=== PATIENT | female | born 1990 | race Caucasian/White ===

== ENCOUNTER 2016-09-27 01:35 | Emergency (ER) | payer MEDICAID ==
[2016-09-27] MEDS ORDERED: TETRACAINE HCL 0.5% OPH SOLN 2 ML ONE (02:30)
[2016-09-27 02:36] LABS: ABSOLUTE LYMPHOCYTES (AUTO) 1.2 10^3/uL (0.5-4.7); ABSOLUTE MONOCYTES (AUTO) 0.8 10^3/uL (0.1-1.4); ABSOLUTE NEUT (AUTO) 11.4 10^3/uL (1.7-8.2); BASOPHILS % (AUTO) 0.2 % (0-2); EOSINOPHILS % (AUTO) 0.1 % (0-6); HEMATOCRIT 29.7 % (36.0-47.0); HEMOGLOBIN 9.6 g/dL (12.0-15.5); HGB HCT DIFFERENCE -0.9; LYMPHOCYTES % (AUTO) 9.1 % (13-45); MEAN CORPUSCULAR HEMOGLOBIN 25.7 pg (27.0-33.4); MEAN CORPUSCULAR HGB CONC 32.5 g/dL (32.0-36.0); MEAN CORPUSCULAR VOLUME 79 fl (80-97); MONOCYTES % (AUTO) 6.2 % (3-13); RED BLOOD COUNT 3.75 10^6/uL (3.72-5.28); RED CELL DISTRIBUTION WIDTH 15.9 % (11.5-14.0); SEGMENTED NEUTROPHILS % (AUTO) 84.4 % (42-78); WHITE BLOOD COUNT 13.5 10^3/uL (4.0-10.5)
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
[2016-09-27 02:50] LABS: ALANINE AMINOTRANSFERASE 26 U/L (9-52); ALBUMIN 3.3 g/dL (3.5-5.0); ALKALINE PHOSPHATASE 182 U/L (38-126); ANION GAP 10 (5-19); ASPARTATE AMINO TRANSFERASE 30 U/L (14-36); BILIRUBIN,TOTAL 0.5 mg/dL (0.2-1.3); BLOOD UREA NITROGEN 8 mg/dL (7-20); CALCIUM 9.1 mg/dL (8.4-10.2); CARBON DIOXIDE 21 mmol/L (22-30); CHLORIDE 106 mmol/L (98-107); CREATININE RESULT 0.57 mg/dL (0.52-1.25); GLUCOSE 79 mg/dL (75-110); POTASSIUM 3.9 mmol/L (3.6-5.0); SODIUM 137.3 mmol/L (137-145); TOTAL PROTEIN 6.7 g/dL (6.3-8.2)
[2016-09-27 02:54] LABS: ALCOHOL < 10 mg/dL (NONE DETECTED)
[2016-09-27 03:09] LABS: APPEARANCE,URINE SLIGHTLY-CLOUDY; BILIRUBIN,URINE NEGATIVE (NEGATIVE); GLUCOSE, URINE NEGATIVE (NEGATIVE); KETONES,URINE TRACE mg/dL (NEGATIVE); LEUKOCYTE ESTERASE,URINE SMALL (NEGATIVE); NITRITE,URINE NEGATIVE (NEGATIVE); PROTEIN,URINE NEGATIVE (NEGATIVE); URINE SPECIFIC GRAVITY 1.006; UROBILINOGEN,URINE NEGATIVE mg/dL (<2.0)
[2016-09-27 03:29] LABS: URINE BARBITURATES SCREEN NEGATIVE; URINE METHADONE SCREEN NEGATIVE; URINE OPIATES LOW NEGATIVE; URINE PHENCYCLIDINE SCREEN NEGATIVE
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
[2016-09-27 13:15] VITALS: BP 115/60
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
--- NOTE | 2016-09-27 23:56 | EKG REPORT ---
SEVERITY:- ABNORMAL ECG - SINUS RHYTHM INFERIOR Q WAVES, PROBABLY NORMAL VARIATION NONSPECIFIC T ABNORMALITIES, ANTERIOR LEADS : Confirmed by: Hamida Lucero 27-Sep-2016 23:55:19
== END 2016-09-27 13:15 | disposition home or self-care (01) ==
LOC: ER 01:35
DX: O26.893 Other specified pregnancy related conditions, third trimester (principal); R45.6 Violent behavior; O99.513 Diseases of the respiratory system complicating pregnancy, third trimester; J44.9 Chronic obstructive pulmonary disease, unspecified; J45.909 Unspecified asthma, uncomplicated; Z3A.38 38 weeks gestation of pregnancy; Z86.14 Personal history of Methicillin resistant Staphylococcus aureus infection
CPT/HCPCS: 93005; 99285; 36415; 80307 ×4; 84703; 85025; 80053; 81001; 93010; J3490

== ENCOUNTER 2016-10-14 17:17 | Outpatient (CLI) | payer MEDICAID ==
--- NOTE | 2016-10-14 18:01 | L&D Flow Sheet ---
LD Flowsheet Datetime Report Generated by CPN: 10/14/2016 18:00 Datetime: 10/14/2016 17:38 Vital Signs NBP Sys/Perlita/Mean (mmHg): 105 (QS system process) : 53 (QS system process) : 74 (QS system process) Pulse: 90 (QS system process)
--- NOTE | 2016-10-14 18:15 | Non Stress Test Report ---
Non Stress Test Datetime Report Generated by CPN: 10/14/2016 18:14 DEMOGRAPHIC EGA NST: 40.1 INDICATION Indication for Study: Ordered by Provider MONITORING Monitor Explained: Monitor Explained; Test Explained; Patient Verbalized Understanding Time on Monitor: 10/14/2016 17:35 Time off Monitor: 10/14/2016 18:02 NST Duration: 27 NST INTERVENTIONS NST Interventions: PO Hydration; Reposition Patient BABY A: [id number] BABY A Movement : Present Contraction Frequency : denies FHR Baseline : 135 Accelerations : 15X15 Decelerations : None Variability : Moderate 6-25bpm NST Review: Meets Criteria for Reactive NST NST Review and Verified By : Amita Palma RN NSNito Results: Reactive NST REPORT Report Trigger: Send Report
== END 2016-10-14 18:09 | disposition home or self-care (01) ==
LOC: LC 17:17
PROVIDERS: ATTEND Obstetrics & Gynecology
PROC: 4A1HXCZ Monitoring of Products of Conception, Cardiac Rate, External Approach (ICD-10-PCS; principal; 2016-10-14)
DX: O48.0 Post-term pregnancy (principal); Z3A.40 40 weeks gestation of pregnancy
CPT/HCPCS: 59025

== ENCOUNTER 2016-10-19 12:20 | Inpatient (IN) | payer MEDICAID ==
[2016-10-19] MEDS ORDERED: PENICILLIN G-K 5 MILLION UNIT VIAL ONE (12:26)
[2016-10-19] MEDS ORDERED: OXYTOCIN/NORMAL SALINE 20 UNIT/1,000 ML RTUINJ ONE (12:26)
[2016-10-19 13:31] LABS: ABSOLUTE LYMPHOCYTES (AUTO) 1.3 10^3/uL (0.5-4.7); ABSOLUTE MONOCYTES (AUTO) 0.7 10^3/uL (0.1-1.4); ABSOLUTE NEUT (AUTO) 16.2 10^3/uL (1.7-8.2); BASOPHILS % (AUTO) 0.2 % (0-2); EOSINOPHILS % (AUTO) 0.1 % (0-6); HEMATOCRIT 31.8 % (36.0-47.0); HEMOGLOBIN 10.1 g/dL (12.0-15.5); HGB HCT DIFFERENCE -1.5; LYMPHOCYTES % (AUTO) 7.3 % (13-45); MEAN CORPUSCULAR HEMOGLOBIN 24.6 pg (27.0-33.4); MEAN CORPUSCULAR HGB CONC 31.8 g/dL (32.0-36.0); MEAN CORPUSCULAR VOLUME 77 fl (80-97); RED BLOOD COUNT 4.12 10^6/uL (3.72-5.28); RED CELL DISTRIBUTION WIDTH 16.8 % (11.5-14.0); SEGMENTED NEUTROPHILS % (AUTO) 88.4 % (42-78); WHITE BLOOD COUNT 18.3 10^3/uL (4.0-10.5)
--- NOTE | 2016-10-19 14:00 | L&D Flow Sheet ---
LD Flowsheet Datetime Report Generated by CPN: 10/19/2016 14:00 Datetime: 10/19/2016 13:51 NBP Sys/Perlita/Mean (mmHg): 117 (QS system process) : 72 (QS system process) : 90 (QS system process) Pulse: 63 (QS system process) Datetime: 10/19/2016 13:36 Stage of : Recovery (Yadi Marissa Veras, RN) NBP Sys/Perlita/Mean (mmHg): 119 (QS system process) : 75 (QS system process) : 93 (QS system process) Pulse: 50 (QS system process) Respirations: 18 (Yadi Veras, RN) Pain Scale: 2 (Yadi Veras, RN) Pain Presence: Intermittent (Yadi Veras, RN) Pain Type: Cramping (Yadi Veras, RN) Pain Location: Abdomen (Yadi Veras, RN) Pain Relief Measures: Comfort Measures (Yadi Veras, RN) Datetime: 10/19/2016 13:21 Stage of : Recovery (Yadi Veras, RN) NBP Sys/Perlita/Mean (mmHg): 120 (QS system process) : 73 (QS system process) : 92 (QS system process) Pulse: 57 (QS system process) Respirations: 18 (Yadi Veras, RN) Pain Scale: 2 (Yadi Veras, RN) Pain Presence: Intermittent (Yadi Veras, RN) Pain Type: Cramping (Yadi Veras, RN) Pain Location: Abdomen (Yadi Veras, RN) Pain Relief Measures: Comfort Measures (Yadi Veras, RN) Datetime: 10/19/2016 12:55 Stage of : Recovery (Yadi Veras, REBEKAH) NBP Sys/Perlita/Mean (mmHg): 123 (QS system process) : 74 (QS system process) : 92 (QS system process) Pulse: 75 (QS system process) Respirations: 18 (Yadi Veras RN) Pain Scale: 2 (Yadi Veras, RN) Pain Presence: Intermittent (Yadi Veras, RN) Pain Type: Cramping (Yadi Veras, RN) Pain Location: Abdomen (Yadi Veras, RN) Pain Relief Measures: Comfort Measures (Yadi Veras RN) Datetime: 10/19/2016 12:44 Stage of : Recovery (Yadi Veras, REBEKAH) NBP Sys/Perlita/Mean (mmHg): 149 (QS system process) : 69 (QS system process) : 94 (QS system process) Pulse: 71 (QS system process) Respirations: 18 (Yadi Veras RN) Pain Scale: 2 (Yadi Veras, REBEKAH) Pain Presence: Intermittent (Yadi Veras RN) Pain Type: Cramping (Yadi Veras, RN) Pain Location: Abdomen (Yadi Veras, RN) Pain Relief Measures: Comfort Measures (Yadi Veras, REBEKAH) Datetime: 10/19/2016 12:37 Stage of : Recovery (Yadi Veras RN) NBP Sys/Perlita/Mean (mmHg): 137 (QS system process) : 63 (QS system process) : 91 (QS system process) Pulse: 71 (QS system process) Respirations: 20 (Yadi Veras RN) Temperature (F): 97.6 (Yadi Veras RN) Temperature (C): 36.4 (QS system process) Temperature Route: Oral (Yadi Veras RN) Pain Scale: 2 (Yadi Veras RN) Pain Presence: Intermittent (Yadi Veras RN) Pain Type: Cramping (Yadi Veras RN) Pain Location: Abdomen; Perineum (Yadi Veras RN) Pain Goal: 1 (Yadi Veras RN) Pain Relief Measures: Comfort Measures (Yadi Veras RN) Datetime: 10/19/2016 12:32 Communication Comments: viable babygirl (Yadi Marissa Roulund, RN) Datetime: 10/19/2016 12:31 Communication Comments: o2 applied 10 L nonrebreather (Yadi Veras, REBEKAH) Datetime: 10/19/2016 12:26 Dilatation (cm): 10.0 (Yadi Veras RN) Effacement (%): 100 (Yadi Veras RN) Station: 1 (Yadi Veras RN) Exam by: Dr. Wick (Yadi Veras RN) Membrane Status: Ruptured (Yadi Veras RN) Membranes Rupture Method: Artificial (Yadi Veras RN) Amniotic Fluid Color: Moderate Meconium (Yadi Veras RN) Amniotic Fluid Amount: Moderate (Yadi Veras RN) Pushing: Coached on Pushing; Urge to Push (Yadi Veras RN) Pushing Position: Pushing with Contractions; Pushing Lithotomy (Yadi Veras RN) Pushing Progress: Descent with Pushing; Presenting Part Visible (Yadi Veras, RN) Datetime: 10/19/2016 12:24 Communication: Provider at Bedside (Yadi Veras, REBEKAH) Communication Comments: Dr. Wick at bedside (Yadi Veras, RN) Datetime: 10/19/2016 12:22 NBP Sys/Perlita/Mean (mmHg): 151 (QS system process) : 67 (QS system process) : 96 (QS system process) Pulse: 97 (QS system process) Communication Comments: Brendan Cunha CNM notified of patient's cervical exam, en route to unit (Yadi Veras, REBEKAH) LaborFlag: Labor (QS system process) Datetime: 10/19/2016 12:20 Stage of : Labor (Yadi Veras RN) Dilatation (cm): 9.0 (Yadi Veras RN) Effacement (%): 100 (Yadi Veras RN) Exam by: Jonas Johnson RN (Yadi Veras, RN)
[2016-10-19] MEDS ORDERED: NA PHOS,M-B/NA PHOS,DI-BA (ADULT) 133 ML ENEMA PR PRN (15:06)
[2016-10-19] MEDS ORDERED: DIPHENHYDRAMINE HCL 25 MG CAPSULE PO PRN (15:06)
[2016-10-19] MEDS ORDERED: BENZOCAINE/MENTHOL AEROSOL SPRAY 56 ML TOP PRN (15:06)
[2016-10-19] MEDS ORDERED: ACETAMINOPHEN 650 MG SUPP.RECT PR PRN (15:06)
[2016-10-19] MEDS ORDERED: MAGNESIUM HYDROXIDE SUSP 30 ML UDCUP PO PRN (15:06)
[2016-10-19] MEDS ORDERED: ZOLPIDEM TARTRATE 5 MG TABLET PO PRN (15:06)
[2016-10-19] MEDS ORDERED: MEASLES,MUMPS&RUBELLA VACC/PF 0.5 ML VIAL SUBCUT PRN (15:06)
[2016-10-19] MEDS ORDERED: GLYCERIN/WITCH HAZEL LEAF 1 EACH MED..PAD TP PRN (15:06)
[2016-10-19] MEDS ORDERED: OXYTOCIN/NORMAL SALINE 1,000 ML IV PRN (15:06)
[2016-10-19] MEDS ORDERED: ACETAMINOPHEN WITH CODEINE #3 TABLET PO PRN ×2 (15:06)
[2016-10-19] MEDS ORDERED: PROMETHAZINE HCL 25 MG TABLET PO PRN (15:06)
[2016-10-19] MEDS ORDERED: PROMETHAZINE HCL 25 MG SUPP.RECT PR PRN (15:06)
[2016-10-19] MEDS ORDERED: DIPH/PERTUSS(ACELL)/TETANUS VAC/PF 0.5 ML SYR (>=10YO) IM PRN (15:06)
[2016-10-19] MEDS ORDERED: PROMETHAZINE HCL INJ 25 MG/1 ML VIAL IV PRN (15:06)
[2016-10-19] MEDS ORDERED: PSEUDOEPHEDRINE HCL 30 MG TABLET PO PRN (15:06)
[2016-10-19] MEDS ORDERED: DIBUCAINE 1% OINTMENT 28 GM TP PRN (15:06)
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
--- NOTE | 2016-10-19 15:54 | Delivery Summary ---
Del Sum A-C Datetime Report Generated by CPN: 10/19/2016 15:54 ADMISSION DATA Chief Complaint: Uterine Contractions Indication for Induction: Not Applicable Admission Impression: Term, Intrauterine ; Active Labor Admission Impression Comments: Arrived on unit at 9cm with bulging membranes. Admit Provider Comments: G2, now P2002 dated by 21 wk sonogram ? psychosocial issues-Involuntary commitment for bipolar issues Late onset and insufficient care Positive GBS test See records DELIVERY PERSONNEL Delivery Doctor:: Maria C Wick MD Labor and Delivery Nurse:: Yadi Veras RN Labor and Delivery Nurse:: Arely Vallejo RN Pre Fabricator:: Rose Bledsoe RN Student Observers:: Evelin Glover/INLAYER: Sarahy He CST MATERNAL INFORMATION Delivery Anesthesia: None Medications After Delivery: Pitocin Bolus-Please Comment; Pitocin Drip 20 Units/1000ml NSS Meds After Delivery Comment: 20 units Pitocin in 1 L NS bolusing per order Estimated Blood Loss (ml): 250 Maternal Complications: Precipitous Labor (<3hrs) Provider Comments: Pt arrived to L and D 9 cm and rapidly progressed to complete and pushing. Arom-meconium. Pushed to delivery of vtx OA with compound post hand with cord wrarrped around it. Shoulders delivered easily and cord reduced. Female infant with apgars 8 and 9. Cord clamped and cut. Placenta spontaneous and intact. Mom and baby doing well. LABOR SUMMARY EDC: 10/13/2016 00:00 No. Babies in Womb: 1 Attempted: No Labor Anesthesia: None LABOR INFORMATION Reason for Induction: Not Applicable Onset of Labor: 10/19/2016 10:45 Complete Dilatation: 10/19/2016 12:26 Oxytocin: N/A Group B Beta Strep: positive Antibiotics # of Doses: 0 Steroids Given: None Reason Steroids Not Administered: Not Applicable MEMBRANES Membranes Rupture Method: Artificial Rupture of Membranes: 10/19/2016 12:26 Length of Rupture (hr): 0.10 Amniotic Fluid Color: Moderate Meconium Amniotic Fluid Amount: Moderate Amniotic Fluid Odor: Normal STAGES OF LABOR Stage 1 hr: 1 Stage 1 min: 41 Stage 2 hr: 0 Stage 2 min: 6 Stage 3 hr: 0 Stage 3 min: 4 Total Time in Labor hr: 1 Total Time in Labor min: 51 VAGINAL DELIVERY Episiotomy: None Laceration Extension: N/A Laceration Type: None Laceration Repair: No Laceration Repair Note: superficial hemostic abrasion r labia minora-no need for repair Sponge Count Correct: N/A Sharps Count Correct: N/A CSECTION DELIVERY Primary Indication: N/A Secondary Indication: N/A CSection Incidence: N/A Labor: N/A Elective: N/A CSection Incision: N/A BABY A INFORMATION Infant Delivery Date/Time: 10/19/2016 12:32 Method of Delivery: Vaginal Born in Route : No : N/A Forceps: N/A Vacuum Extraction: N/A Shoulder Dystocia : No PRESENTATION/POSITION BABY A Presentation: Cephalic Cephalic Presentation: Vertex Vertex Position: Left Occipital Anterior Breech Presentation: N/A PLACENTA INFORMATION BABY A Placenta Delivery Time : 10/19/2016 12:36 Placenta Method of Delivery: Spontaneous Placenta Status: Delivered SCORES BABY A Heart Rate 1 min: >100 bpm Resp Effort 1 min: Good Cry Reflex Irritability 1 min: Cough or Sneeze or Pulls Away Muscle Tone 1 min: Active Motion Color 1 min: Blue/Pale SCORE 1 MIN: 8 Heart Rate 5 min: >100 bpm Resp Effort 5 min: Good Cry Reflex Irritability 5 min: Cough or Sneeze or Pulls Away Muscle Tone 5 min: Active Motion Color 5 min: Body [place], Extremities Blue SCORE 5 MIN: 9 INFANT INFORMATION BABY A Gestational Age at Delivery: 40.6 Gestational Status: Full Term- 39- 40.6 Weeks Infant Outcome : Liveborn Infant Condition : Stable Sex: Female IDENTIFICATION BABY A Verification Date/Time: 10/19/2016 12:48 ID Band Number: [id number] Mother's Name Verified: Yes RN Verifying : Leslie Rogers WEIGHT/LENGTH BABY A Infant Birthweight (gm): 3180 Weight (lb): 7 Weight (oz): 0 Length (in): 20.50 Length (cm): 52.07 CORD INFORMATION BABY A No. Cord Vessels: 3 Nuchal Cord : Around Neck x1, Loose Nuchal Cord- Other: compound right hand Cord Blood Taken: Yes-For Eval (Mom's Blood Type - or O+) Suction: Mouth; Nose ASSESSMENT BABY A Infant Complications: Meconium Physical Findings at Delivery: Within Normal Limits Respirations: Appears Normal Skin to Skin: Yes Skin to Skin Time (min): 80 Real Estate Instructor/ALS Called : No Infant Care By: Leslie RONQUILLO RN Transferred To: Nursery BABY B INFORMATION : N/A SIGNATURES Signature: with User ID: [email or web address] : I personally evaluated and examined the patient in conjunction with the MLP and agree with the assessment, treatment plan and disposition.
--- NOTE | 2016-10-19 16:00 | L&D Flow Sheet ---
LD Flowsheet Datetime Report Generated by CPN: 10/19/2016 16:00 Datetime: 10/19/2016 14:51 Stage of : Recovery (Yadi Veras RN) NBP Sys/Perlita/Mean (mmHg): 123 (QS system process) : 67 (QS system process) : 89 (QS system process) Pulse: 65 (QS system process) Respirations: 18 (Yadi Veras RN) Pain Scale: 2 (Yadi Veras RN) Pain Presence: Intermittent (Yadi Veras RN) Pain Type: Cramping (Yadi Veras RN) Pain Location: Abdomen (Yadi Veras RN) Pain Relief Measures: Comfort Measures (Yadi Veras RN) Datetime: 10/19/2016 14:37 Frequency (min): DELIVERED (Yadi Veras RN) Monitor Mode: DELIVERED (Yadi Veras RN) Pain Scale: 2 (Yadi Veras RN) Pain Presence: Intermittent (Yadi Veras RN) Pain Type: Cramping (Yadi Veras RN) Pain Location: Abdomen (Yadi Veras RN) Pain Goal: 1 (Yadi Veras RN) Pain Relief Measures: Comfort Measures (Yadi Veras RN) Pain Coping: Breathing Through Contractions; Requesting Pain Medication or Epidural; Writhing (Yadi Veras RN) Vaginal Bleeding: Small (Yadi Veras RN) Level of Consciousness: Fully Conscious (Yadi Veras RN) DTR's/Clonus: DTRs 1+; No Clonus (Yadi Veras RN) Headache: Denies (Yadi Veras RN) Breath Sounds, Left: Clear and Equal (Yadi Veras RN) Breath Sounds, Right: Clear and Equal (Yadi Veras RN) Nausea/Vomiting: Denies (Yadi Veras RN) RUQ Epigastric Pain: Denies (Yadi Veras RN) IV/Blood Work: IV Infusing per Order (Yadi Veras RN) Oxygen Method: Room Air (Yadi Veras RN) Procedures: Consents Signed (Yadi Veras RN) Patient Position/Activity: Semi-Fowlers (Yadi Veras RN) Comfort Measures: Family Support (Yadi Veras RN) Datetime: 10/19/2016 14:36 Stage of : Recovery (Yadi Veras RN) NBP Sys/Perlita/Mean (mmHg): 131 (QS system process) : 71 (QS system process) : 95 (QS system process) Pulse: 72 (QS system process) Respirations: 18 (Yadi Veras RN) Datetime: 10/19/2016 14:21 Stage of : Recovery (Yadi Veras RN) NBP Sys/Perlita/Mean (mmHg): 131 (QS system process) : 64 (QS system process) : 92 (QS system process) Pulse: 72 (QS system process) Respirations: 18 (Yadi Veras RN) Pain Scale: 2 (Yadi Veras RN) Pain Presence: Intermittent (Yadi Veras RN) Pain Type: Cramping (Yadi Veras RN) Pain Location: Abdomen (Yadi Veras RN) Pain Relief Measures: Comfort Measures (Yadi Veras RN) Datetime: 10/19/2016 14:07 Stage of : Recovery (Yadi Veras RN) NBP Sys/Perlita/Mean (mmHg): 126 (QS system process) : 69 (QS system process) : 88 (QS system process) Pulse: 72 (QS system process) Respirations: 18 (Yadi Veras RN) Pain Scale: 2 (Yadi Veras RN) Pain Presence: Intermittent (Yadi Veras RN) Pain Type: Cramping (Yadi Veras RN) Pain Location: Abdomen (Yadi Veras RN) Pain Relief Measures: Comfort Measures (Yadi Veras RN)
[2016-10-19] MEDS ORDERED: INFLUENZA ADLT QUAD (36MOS+) 2016-17 VAC 0.5 ML SYR IM PRN (16:34)
[2016-10-19] MEDS: DOCUSATE SODIUM 100 MG CAPSULE PO SCH (17:52)
[2016-10-19] MEDS: FERROUS SULFATE 325 MG TABLET PO SCH (17:52)
--- NOTE | 2016-10-19 19:00 | L&D Flow Sheet ---
LD Flowsheet Datetime Report Generated by CPN: 10/19/2016 19:00 Datetime: 10/19/2016 14:51 Stage of : Recovery (Yadi Veras RN) NBP Sys/Perlita/Mean (mmHg): 123 (QS system process) : 67 (QS system process) : 89 (QS system process) Pulse: 65 (QS system process) Respirations: 18 (Yadi Veras RN) Pain Scale: 2 (Yadi Veras RN) Pain Presence: Intermittent (Yadi Veras RN) Pain Type: Cramping (Yadi Veras RN) Pain Location: Abdomen (Yadi Veras RN) Pain Relief Measures: Comfort Measures (Yadi Veras RN) Datetime: 10/19/2016 14:37 Frequency (min): DELIVERED (Yadi Veras RN) Monitor Mode: DELIVERED (Yadi Veras RN) Pain Scale: 2 (Yadi Veras RN) Pain Presence: Intermittent (Yadi Veras RN) Pain Type: Cramping (Yadi Vears RN) Pain Location: Abdomen (Yadi Veras RN) Pain Goal: 1 (Yadi Veras RN) Pain Relief Measures: Comfort Measures (Yadi Veras RN) Pain Coping: Breathing Through Contractions; Requesting Pain Medication or Epidural; Writhing (Yadi Veras RN) Vaginal Bleeding: Small (Yadi Veras RN) Level of Consciousness: Fully Conscious (Yadi Veras RN) DTR's/Clonus: DTRs 1+; No Clonus (Yadi Veras RN) Headache: Denies (Yadi Veras RN) Breath Sounds, Left: Clear and Equal (Yadi Veras RN) Breath Sounds, Right: Clear and Equal (Yadi Veras RN) Nausea/Vomiting: Denies (Yadi Veras RN) RUQ Epigastric Pain: Denies (Yadi Veras RN) IV/Blood Work: IV Infusing per Order (Yadi Veras RN) Oxygen Method: Room Air (Yadi Veras RN) Procedures: Consents Signed (Yadi Veras RN) Patient Position/Activity: Semi-Fowlers (Yadi Veras RN) Comfort Measures: Family Support (Yadi Veras RN) Datetime: 10/19/2016 14:36 Stage of : Recovery (Yadi Veras RN) NBP Sys/Perlita/Mean (mmHg): 131 (QS system process) : 71 (QS system process) : 95 (QS system process) Pulse: 72 (QS system process) Respirations: 18 (Yadi Veras RN) Datetime: 10/19/2016 14:21 Stage of : Recovery (Yadi Veras RN) NBP Sys/Perlita/Mean (mmHg): 131 (QS system process) : 64 (QS system process) : 92 (QS system process) Pulse: 72 (QS system process) Respirations: 18 (Yadi Veras RN) Pain Scale: 2 (Yadi Veras RN) Pain Presence: Intermittent (Yadi Veras RN) Pain Type: Cramping (Yadi Veras RN) Pain Location: Abdomen (Yadi Veras RN) Pain Relief Measures: Comfort Measures (Yadi Veras RN) Datetime: 10/19/2016 14:07 Stage of : Recovery (Yadi Veras RN) NBP Sys/Perlita/Mean (mmHg): 126 (QS system process) : 69 (QS system process) : 88 (QS system process) Pulse: 72 (QS system process) Respirations: 18 (Yadi Veras RN) Pain Scale: 2 (Yadi Veras RN) Pain Presence: Intermittent (Yadi Veras RN) Pain Type: Cramping (Yadi Veras RN) Pain Location: Abdomen (Yadi Veras RN) Pain Relief Measures: Comfort Measures (Yadi Veras RN) Datetime: 10/19/2016 13:51 Stage of : Recovery (Yadi Veras RN) NBP Sys/Perlita/Mean (mmHg): 117 (QS system process) : 72 (QS system process) : 90 (QS system process) Pulse: 63 (QS system process) Respirations: 18 (Yadi Veras RN) Pain Scale: 2 (Yadi Veras RN) Pain Presence: Intermittent (Yadi Veras RN) Pain Type: Cramping (Yadi Veras RN) Pain Location: Abdomen (Yadi Veras RN) Pain Relief Measures: Comfort Measures (Yadi Veras RN) Datetime: 10/19/2016 13:36 Stage of : Recovery (Yadi Veras RN) NBP Sys/Perlita/Mean (mmHg): 119 (QS system process) : 75 (QS system process) : 93 (QS system process) Pulse: 50 (QS system process) Respirations: 18 (Yadi Veras RN) Pain Scale: 2 (Yadi Veras RN) Pain Presence: Intermittent (Yadi Veras RN) Pain Type: Cramping (Yadi Veras RN) Pain Location: Abdomen (Yadi Veras RN) Pain Relief Measures: Comfort Measures (Yadi Veras RN) Datetime: 10/19/2016 13:21 Stage of : Recovery (Yadi Veras RN) NBP Sys/Perlita/Mean (mmHg): 120 (QS system process) : 73 (QS system process) : 92 (QS system process) Pulse: 57 (QS system process) Respirations: 18 (Yadi Veras RN) Pain Scale: 2 (Yadi Veras RN) Pain Presence: Intermittent (Yadi Veras RN) Pain Type: Cramping (Yadi Veras, REBEKAH) Pain Location: Abdomen (Yadi Veras, REBEKAH) Pain Relief Measures: Comfort Measures (Yadi Veras, REBEKAH) Datetime: 10/19/2016 12:55 Stage of : Recovery (Yadi Veras RN) NBP Sys/Perlita/Mean (mmHg): 123 (QS system process) : 74 (QS system process) : 92 (QS system process) Pulse: 75 (QS system process) Respirations: 18 (aYdi Veras RN) Pain Scale: 2 (Yadi Veras RN) Pain Presence: Intermittent (Yadi Veras RN) Pain Type: Cramping (Yadi Veras, REBEKAH) Pain Location: Abdomen (Yadi Veras, REBEKAH) Pain Relief Measures: Comfort Measures (Yadi Veras RN) Datetime: 10/19/2016 12:44 Stage of : Recovery (Yadi Veras RN) NBP Sys/Perlita/Mean (mmHg): 149 (QS system process) : 69 (QS system process) : 94 (QS system process) Pulse: 71 (QS system process) Respirations: 18 (Yadi Veras RN) Pain Scale: 2 (Yadi Veras RN) Pain Presence: Intermittent (Yadi Veras RN) Pain Type: Cramping (Yadi Veras RN) Pain Location: Abdomen (Yadi Veras RN) Pain Relief Measures: Comfort Measures (Yadi Veras RN) Datetime: 10/19/2016 12:37 Stage of : Recovery (Yadi Veras RN) NBP Sys/Perlita/Mean (mmHg): 137 (QS system process) : 63 (QS system process) : 91 (QS system process) Pulse: 71 (QS system process) Respirations: 20 (Yadi Veras RN) Temperature (F): 97.6 (Yadi Veras RN) Temperature (C): 36.4 (QS system process) Temperature Route: Oral (Yadi Veras RN) Pain Scale: 2 (Yadi Veras RN) Pain Presence: Intermittent (Yadi Veras RN) Pain Type: Cramping (Yadi Veras RN) Pain Location: Abdomen; Perineum (Yadi Veras RN) Pain Goal: 1 (Yadi Veras RN) Pain Relief Measures: Comfort Measures (Yadi Veras RN) Datetime: 10/19/2016 12:32 Stage of : Labor (Yadi Veras RN) Respirations: 22 (Yadi Veras RN) Monitor Mode: External; Palpation (Yadi Veras RN) Monitor Interventions for UA: [place] Adjusted (Yadi Veras RN) Frequency (min): 1.5-2 (Yadi Veras RN) Quality: Moderate to Strong (Yadi Veras RN) Duration (sec): 60-70 (Yadi Veras, REBEKAH) Resting Tone (Palpate): Relaxed (Yadi Veras RN) Monitor Mode: External US (Yadi Veras RN) Monitor Interventions for FHR: Ultrasound Adjusted (Yadi Veras RN) FHR Baseline Rate : 120 (Yadi Veras RN) FHR Baseline Changes: No Baseline Change (Yadi Veras RN) Variability: Moderate 6-25 bpm (Yadi Veras RN) Accelerations: None (Yadi Veras RN) Decelerations: Early; Variable (Yadi Veras RN) Pain Presence: Intermittent (Yadi Veras RN) Pain Type: Contraction; Pressure (Yadi Veras RN) Pain Location: Abdomen; Perineum (Yadi Veras, RN) Pain Coping: Breathing Through Contractions; Writhing (Yadi Veras, REBEKAH) Comfort Measures: Breathing/Relaxation; Coaching; Family Support (Yadi Veras, REBEKAH) Provider Reviewed Strip: Yes (Yadi Veras RN) Communication: RN at Bedside; RN Reviewed Strip; Provider at Bedside (Yadi Veras RN) Communication Comments: MD WOLFE @ BS (Yadi Veras RN) Communication Comments: viable babygirl (Yadi Veras RN) LaborFlag: Labor (QS system process) Datetime: 10/19/2016 12:31 Communication Comments: o2 applied 10 L nonrebreather (Yadi Veras RN) Datetime: 10/19/2016 12:26 Stage of : Labor (Yadi Veras RN) Dilatation (cm): 10.0 (Yadi Marissa Roulund, RN) Effacement (%): 100 (Yadi Veras RN) Station: 1 (Yadi Veras RN) Exam by: Dr. Wick (Yadi Veras, REBEKAH) Membrane Status: Ruptured (Yadi Veras RN) Membranes Rupture Method: Artificial (Yadi Veras RN) Amniotic Fluid Color: Moderate Meconium (Yadi Veras RN) Amniotic Fluid Amount: Moderate (Yadi Veras RN) IV/Blood Work: IV Started; IV Bolus Started; New IV Bag Hung (Yadi Veras, REBEKAH) Pushing: Coached on Pushing; Urge to Push; Involuntary Pushing (Yadi Veras RN) Pushing Position: Pushing with Contractions; Pushing Lithotomy (Yadi Veras RN) Pushing Progress: Descent with Pushing; Presenting Part Visible (Yadi Veras RN) Datetime: 10/19/2016 12:24 Communication: Provider at Bedside (Yadi Veras RN) Communication Comments: Dr. Wick at bedside (Yadi Veras, REBEKAH) Datetime: 10/19/2016 12:22 NBP Sys/Perlita/Mean (mmHg): 151 (QS system process) : 67 (QS system process) : 96 (QS system process) Pulse: 97 (QS system process) Communication Comments: Brendan Cunha CNM notified of patient's cervical exam, en route to unit (Yadi Veras RN) LaborFlag: Labor (QS system process) Datetime: 10/19/2016 12:20 Stage of : Labor (Yadi Veras RN) Monitor Mode: External; Palpation (Yadi Veras RN) Monitor Interventions for UA: [place] Adjusted (Yadi Veras RN) Quality: Moderate to Strong (Yadi Veras RN) Resting Tone (Palpate): Relaxed (Yadi Veras RN) Monitor Mode: External US (Yadi Veras RN) Monitor Interventions for FHR: Ultrasound Adjusted (Yadi Veras RN) FHR Baseline Rate : 125 (Yadi Veras RN) Pain Scale: 5 (Yadi Veras RN) Pain Presence: Intermittent (Yadi Veras RN) Pain Type: Contraction; Pressure (Yadi Veras RN) Pain Location: Abdomen; Perineum (Yadi Veras RN) Pain Goal: 1 (Yadi Veras RN) Pain Relief Measures: Comfort Measures (Yadi Veras RN) Pain Coping: Breathing Through Contractions; Requesting Pain Medication or Epidural; Writhing (Yadi Veras, RN) Dilatation (cm): 9.0 (Yadi Veras, RN) Effacement (%): 100 (Yadi Veras, RN) Exam by: Jonas Johnson RN (Yadi Veras, RN) Membrane Status: Bulging (Yadi Veras, RN) Patient Position/Activity: Left Lateral (Yadi Veras, REBEKAH) Comfort Measures: Breathing/Relaxation; Coaching; Family Support (Yadi Veras, REBEKAH) Instructional Method: Verbal; Patient Instructed; Family/Support Person Instructed; Verbalized Understanding (Yadi Veras, REBEKAH) Plan of Care: Vaginal Delivery; Labor (Yadi Veras, REBEKAH) Pain Management: Pain Scale/Goals; Comfort Measures (Yadi Veras, REBEKAH) Communication: RN at Bedside; RN Reviewed Strip (Yadi Veras RN) LaborFlag: Labor (QS system process)
[2016-10-19] MEDS: FAMOTIDINE 20 MG TABLET PO SCH (22:20)
[2016-10-19] MEDS: IBUPROFEN 800 MG TABLET PO SCH (22:21)
[2016-10-20] MEDS: IBUPROFEN 800 MG TABLET PO SCH ×3 (05:31→21:57)
--- NOTE | 2016-10-20 06:00 | L&D General Admission ---
General Admit Datetime Report Generated by CPN: 10/20/2016 06:00 INFORMATION Patient Age: 26 (09/28/2016 16:06:QS system process) EDC: 10/13/2016 00:00 (10/14/2016 17:34:LUPILLO Glover) : 2 (10/14/2016 17:34:Rosibel Tracey RN) Para: 1 (10/14/2016 17:34:LUPILLO Glover) Term: 1 (10/14/2016 17:34:Rosibel Tracey RN) : 0 (10/14/2016 17:34:Rosibel Tracey RN) Spontaneous Abortions: 0 (10/14/2016 17:34:Rosibel Tracey RN) Induced Abortions: 0 (10/14/2016 17:34:Rosibel Tracey RN) Livin (10/14/2016 17:34:Rosibel Tracey RN) Cesareans: 0 (10/14/2016 17:34:Rosibel Tracey RN) VBACs: 0 (10/14/2016 17:34:Rosibel Tracey RN) Ectopic: 0 (10/14/2016 17:34:Rosibel Tracey RN) Multiple Births: 0 (10/14/2016 17:34:Rosibel Tracey RN) Baby, Number in Womb: 1 (10/14/2016 17:34:LUPILLO Glover) CARE Primary Motor Coach Tour Operator: [facility] (10/14/2016 17:34:Rosibel Tracey RN) Adequate Care: No (10/14/2016 17:34:Yadi Veras RN) Prepregnancy Weight (lb): 135 (10/14/2016 17:34:Yadi Veras RN) Prepregnancy Weight (kg): 61.4 (10/14/2016 17:34:QS system process) Height (in): 61 (10/19/2016 16:33:QS system process) ALLERGIES Medication Allergy: No (10/14/2016 17:34:Rosibel Tracey RN) Medication Allergies: No Known Allergies (10/14/2016) (10/14/2016 18:24:QS system process) Latex Allergy: No Latex Allergies (10/14/2016 17:34:Rosibel Tracey RN) Food Allergies: NONENONE (10/14/2016 17:34:Yadi Veras RN) COMMUNICATION Primary Language: Mosotho (10/14/2016 17:34:Rosibel Tracey RN) Medical Tx Preferred Language: Mosotho (10/14/2016 17:34:Rosibel Tracey RN) Communication Barrier(s): None (10/14/2016 17:34:Yadi Veras RN) DEMOGRAPHICS Address: [address] [place] [id number] (10/14/2016 17:17:QS system process) Zipcode: [address] (09/28/2016 16:06:QS system process) Home (10/14/2016 17:17:QS system process) N: [id number] (09/28/2016 16:06:QS system process) Next of Kin Name: KERRY COLLADO (09/28/2016 16:06:QS system process) Next of Kin (09/28/2016 16:06:QS system process) Next of Kin Relationship: OR (09/28/2016 16:06:QS system process) Date of : 1990 (09/28/2016 16:06:QS system process) Marital Status: (09/28/2016 16:06:QS system process) Sex: Female (09/28/2016 16:06:QS system process) Occupation: Homemaker (10/14/2016 17:34:Yadi Veras RN) Race: (09/28/2016 16:06:QS system process) Ethnicity: Non- or (09/28/2016 16:06:QS system process) Episcopal: Restorationist (09/28/2016 16:06:QS system process) Education: 12 (10/14/2016 17:34:Yadi Veras RN) FOB Involved: Yes (10/14/2016 17:34:Yadi Veras RN) Father of Baby Name: SONIDO PENA (10/14/2016 17:34:Yadi Veras RN) DRUG AND ALCOHOL USE Alcohol: No (10/14/2016 17:34:Rosibel Tracey RN) Cigarettes: Never Smoker. [id number] (10/14/2016 17:34:Yadi Veras RN) Marijuana: No (10/14/2016 17:34:Rosibel Tracey RN) Cocaine: No (10/14/2016 17:34:Rosibel Tracey RN) Other Illicit Drugs: No (10/14/2016 17:34:Rosibel Tracey RN) VACCINE HISTORY Influenza Vaccine: No (10/14/2016 17:34:Yadi Veras RN) Pneumococcal Vaccine: No (10/14/2016 17:34:Yadi Veras RN) Tdap Vaccine: Uncertain (10/14/2016 17:34:Yadi Veras RN) Hepatitis B Vaccine: Yes (10/14/2016 17:34:Yadi Veras RN) High School Drafting Teacher: RODNEY PEÑA (10/14/2016 17:34:Yadi Veras RN) Feeding Preference: Formula (10/14/2016 17:34:Yadi Veras RN) Benefit of Breast Feed Discussed: Yes (10/14/2016 17:34:Yadi Veras RN) Circumcision: N/A (10/14/2016 17:34:Rosibel Tracey RN) Classes Attended: No (10/14/2016 17:34:Rosibel Tracey RN) Tubal Ligation: No (10/14/2016 17:34:Rosibel Tracey RN) Tubal Authorization Signed: N/A (10/14/2016 17:34:Rosibel Tracey RN) Consent: N/A (10/14/2016 17:34:Rosibel Tracey RN) Consent Signed: N/A (10/14/2016 17:34:Rosibel Tracey RN) Plans for Labor and Delivery: None (10/14/2016 17:34:Yadi Veras RN) Support Person: RUI (10/14/2016 17:34:Yadi Veras RN) Support Person Relationship: Significant Other (10/14/2016 17:34:Yadi Veras RN) Cultural/Spritual Practice: No (10/14/2016 17:34:Rosibel Tracey RN) Spir/Cult Dietary Needs: No (10/14/2016 17:34:Rosibel Tracey RN) LIVING SITUATION/DISCHARGE PLAN Living Arrangements: House (10/14/2016 17:34:Yadi Veras RN) Adequate Access to:: Electric; Heat; Refrigeration; Plumbing/Running water; Phone; Transportation (10/14/2016 17:34:Yadi Veras RN) WIC Program: Yes (10/14/2016 17:34:Yadi Veras RN) Discharge Donor Specialist Person: SONIDO (10/14/2016 17:34:Yadi Veras RN) Person to Help after Discharge: EITAN (10/14/2016 17:34:Yadi Veras RN) Currently Using Commun Resources: No (10/14/2016 17:34:Yadi Veras RN) Outside Agency/Card Services Specialist: No (10/14/2016 17:34:Yadi Veras RN) Car Seat for Discharge: Yes (10/14/2016 17:34:Yadi Veras RN) Adoption Requested: No (10/14/2016 17:34:Yadi Veras RN) Pt Contact w/ Post : N/A (10/14/2016 17:34:Yadi Veras RN) LABS Blood Type: O Positive (10/14/2016 17:34:Yadi Veras RN) Antibody Screen: negative (10/14/2016 17:34:Yadi Veras RN) Hemoglobin: 10.1 L (10/19/2016 13:12:QS system process) Hematocrit: 31.8 L (10/19/2016 13:12:QS system process) MCV: 77 L (10/19/2016 13:12:QS system process) Group Beta Strep: positive (10/14/2016 17:34:Yadi Veras RN) Gonorrhea: Negative (10/14/2016 17:34:Yadi Veras RN) Chlamydia: Negative (10/14/2016 17:34:Yadi Veras RN) RPR/VDRL: Nonreactive (10/14/2016 17:34:Yadi Veras RN) HIV Exposure Test: Negative (10/14/2016 17:34:Yadi Veras RN) Hepatitis B: Negative (10/14/2016 17:34:Yadi Veras RN) Rubella: Immune (10/14/2016 17:34:Yadi Veras RN) Pap Test: Normal (10/14/2016 17:34:Yadi Veras RN) OB/PREVIOUS HISTORY Current Procedures: Ultrasound; NST (10/14/2016 17:34:Yadi Veras RN) History of Previous : No (10/14/2016 17:34:Yadi Veras RN) History of Gestational Diabetes: No (10/14/2016 17:34:Yadi Veras RN) History of PIH: No (10/14/2016 17:34:Yadi Veras RN) History of Incompetent Cervix: No (10/14/2016 17:34:Yadi Veras RN) History of Placenta Previa/Abrup: No (10/14/2016 17:34:Yadi Veras RN) History of Macrosomia: No (10/14/2016 17:34:Yadi Veras RN) History of IUGR: No (10/14/2016 17:34:Yadi Veras RN) History of Hemorrhage: No (10/14/2016 17:34:Yadi Veras RN) History of Loss/Stillborn: No (10/14/2016 17:34:Yadi Veras RN) History of : No (10/14/2016 17:34:Yadi Veras RN) History of D (Rh) Sensitization: No (10/14/2016 17:34:Yadi Veras RN) History Recurrent Loss/Stillborn: No (10/14/2016 17:34:Yadi Veras RN) History Depression/PP Depression: No (10/14/2016 17:34:Yadi Veras RN) History of Uterine Anomaly/KELLY: No (10/14/2016 17:34:Yadi Veras RN) History of Infertility: No (10/14/2016 17:34:Yadi Veras RN) History of ART Treatment: No (10/14/2016 17:34:Yadi Veras RN) History of KELLY: No (10/14/2016 17:34:Yadi Veras RN) MEDICAL HISTORY Med Hx Diabetes: No (10/14/2016 17:34:Yadi Veras RN) Med Hx Hypertension: No (10/14/2016 17:34:Yadi Veras RN) Med Hx Heart Disease: No (10/14/2016 17:34:Yadi Veras RN) Med Hx Autoimmune Disorder: No (10/14/2016 17:34:Yadi Veras RN) Med Hx Kidney Disease/UTI: Yes (10/14/2016 17:34:Yadi Veras RN) Med Hx Neurologic/Epilepsy: Yes (10/14/2016 17:34:Yadi Veras RN) Med Hx Psychiatric Disorders: Yes (10/14/2016 17:34:Yadi Veras RN) Med Hx Hepatitis/Liver Disease: No (10/14/2016 17:34:Yadi Veras RN) Med Hx Varicosities/Phlebitis: No (10/14/2016 17:34:Yadi Veras RN) Med Hx Thyroid Dysfunction: No (10/14/2016 17:34:Yadi Veras RN) Med Hx Trauma/Violence: Yes (10/14/2016 17:34:Yadi Veras RN) Med Hx Blood Transfusion: No (10/14/2016 17:34:Yadi Veras RN) Med Hx Pulmonary (Asthma,TB): No (10/14/2016 17:34:Yadi Veras RN) Med Hx Breast: No (10/14/2016 17:34:Yadi Veras RN) Med Hx CERTIFIED CAREGIVER Surgery: No (10/14/2016 17:34:Yadi Veras RN) Med Hx Hospitalization/Surgery: Yes (10/14/2016 17:34:Yadi Veras RN) Med Hx Anesthetic Complications: No (10/14/2016 17:34:Yadi Veras RN) Med Hx Abnormal Pap Smear: Yes (10/14/2016 17:34:Yadi Veras RN) Other Medical Diseases: No (10/14/2016 17:34:Yadi Veras RN) Med Hx Significant Family Hx: No (10/14/2016 17:34:Yadi Veras, REBEKAH) Details of Med/Surg Hx: H/O UTI X 2 H/O EPILEPSY- NO MEDS @ PRESENT, WILL RESTART PP BIPOLAR, MANIC DEPRESSION, ANGER OUTBURSTS CHILDBIRTH; PLEURAL TUBE INSERTED- 3 MO PREMATURE ABN PAP WITH LGSIL PT HAS HAD BLACK EYE DURING THIS - DENIES DV (10/14/2016 17:34:Yadi Veras, REBEKAH) INFECTIOUS HISTORY Inf Hx Gonorrhea: No (10/14/2016 17:34:Yadi Veras RN) Inf Hx Chlamydia: No (10/14/2016 17:34:Yadi Veras RN) Inf Hx Syphilis: No (10/14/2016 17:34:Yadi Veras RN) Inf Hx HIV/AIDS: No (10/14/2016 17:34:Yadi Veras RN) Inf Hx Human Papilloma Virus: No (10/14/2016 17:34:Yadi Veras RN) Inf Hx Pt/Partner Genital Herpes: No (10/14/2016 17:34:Yadi Veras RN) Inf Hx Tuberculosis/Exposure: No (10/14/2016 17:34:Yadi Veras RN) Inf Hx Hepatitis B,C: No (10/14/2016 17:34:Yadi Veras RN) Inf Hx Rash or Viral Illness: No (10/14/2016 17:34:Yadi Veras RN) GENETIC HISTORY Gen Hx Age >=35 at GEREMIAS: No (10/14/2016 17:34:Yadi Veras RN) Gen Hx Thalassemia: No (10/14/2016 17:34:Yadi Veras RN) Gen Hx Congenital Heart Defect: No (10/14/2016 17:34:Yadi Veras RN) Gen Hx Neural Tube Defect: No (10/14/2016 17:34:Yadi Veras RN) Gen Hx Down's Syndrome: No (10/14/2016 17:34:Yadi Veras RN) Gen Hx Luciano-Sachs: No (10/14/2016 17:34:Yadi Veras RN) Gen Hx Pedro: No (10/14/2016 17:34:Yadi Veras RN) Gen Hx Familial Dysautonomia: No (10/14/2016 17:34:Yadi Veras RN) Gen Hx Sickle Cell Disease/Trait: No (10/14/2016 17:34:Yadi Veras RN) Gen Hx Hemophilia/Blood Disorder: No (10/14/2016 17:34:Yadi Veras RN) Gen Hx Muscular Dystrophy: No (10/14/2016 17:34:Yadi Veras RN) Gen Hx Cystic Fibrosis: No (10/14/2016 17:34:Yadi Veras RN) Gen Hx Huntingtons Chorea: No (10/14/2016 17:34:Yadi Veras RN) Gen Hx Mental Retardation/Autism: No (10/14/2016 17:34:Yadi Veras RN) Gen Hx Tested for Fragile X: No (10/14/2016 17:34:Yadi Veras RN) Gen Hx Other Inher/Chromosomal: No (10/14/2016 17:34:Yadi Veras RN) Gen Hx Maternal Metabolic DO: No (10/14/2016 17:34:Yadi Veras RN) Gen Hx Pt Father or FOB Defect: No (10/14/2016 17:34:Yadi Veras RN) Gen Hx Other Genetic History: No (10/14/2016 17:34:Yadi Veras RN) Gen Hx Drugs/Meds since LMP: No (10/14/2016 17:34:Yadi Veras RN)
--- NOTE | 2016-10-20 06:00 | L&D Current Admission ---
Current Admit Datetime Report Generated by CPN: 10/20/2016 06:00 ADMISSION INFORMATION Current Admit Date/Time: 10/19/2016 12:20 (10/19/2016 12:39:Rosibel Tracey RN) Reason for Admission: Onset of Labor (10/19/2016 12:39:Rosibel Tracey RN) Chief Complaint: Contractions (10/19/2016 14:37:Yadi Veras RN) EGA per Dates: 40.6 (10/19/2016 12:39:QS system process) Method of Arrival: Wheelchair (10/19/2016 12:39:Rosibel Tracey RN) Admitted From: Home (10/19/2016 12:39:Rosibel Tracey RN) Reason for Induction: Not Applicable (10/19/2016 12:39:Rosibel Tracey RN) Records Available: Yes (10/19/2016 12:39:Yadi Veras RN) General Admission Information: Reviewed (10/19/2016 12:39:Yadi Veras RN) BELONGINGS/ADVANCED DIRECTIVES Other Belongings: see signed belongings consent (10/19/2016 12:39:Rosibel Tracey RN) Disposition of Belongings: Kept with Patient (10/19/2016 12:39:Rosibel Tracey RN) Advance Direct for Healthcare: No, and Wants No Information (10/19/2016 12:39:Rosibel Tracey RN) Durable Power of Shingle Catcher: No (10/19/2016 12:39:Rosibel Tracey RN) Living Will: No (10/19/2016 12:39:Rosibel Tracey RN) Organ Donor: No (10/19/2016 12:39:Rosibel Tracey RN) Pt Rights Information Given: Yes (10/19/2016 12:39:Rosibel Tracey RN) Pt Understands Pt Rights: Yes (10/19/2016 12:39:Rosibel Tracey RN) LEARNING ASSESSMENT Knowledge Level: Understands L_D Process; Understands Care Activities; Had Pre-Hospital Education; Understands Diagnosis (10/19/2016 12:39:Rosibel Tracey RN) Barriers to Learning: None (10/19/2016 12:39:Rosibel Tracey RN) Learning Readiness: Motivated (10/19/2016 12:39:Rosibel Tracey RN) Learns Best By: 1 to 1 Instruction; Reading; Videos; Demonstration (10/19/2016 12:39:Yadi Veras RN) Learning Needs: Labor and Delivery Process; Pain Management; Symptoms to Report; Treatment Plan; Medication; Diagnosis; Nutrition; Equipment; Care; Community Resources (10/19/2016 12:39:Rosibel Tracey RN) DOMESTIC VIOLANCE SCREENING Dom Viol Threatened/Hurt: No (10/19/2016 12:39:Rosibel Tracey RN) Hx of Abuse/Neglect past 2yrs: No (10/19/2016 12:39:Rosibel Tracey RN) Feel Unsafe Going Home: No (10/19/2016 12:39:Rosibel Tracey RN) Addt'l Observ Indicating Abuse: No (10/19/2016 12:39:Rosibel Tracey RN) Reason Unable to Complete Screen: N/A, Screen Completed (10/19/2016 12:39:Rosibel Tracey RN) Considered Personal Harm/Suicide: No (10/19/2016 12:39:Rosibel Tracey RN) NUTRITIONAL/FUNCTIONAL SCREENING Problem with Appetite >5 Days: No (10/19/2016 12:39:Rosibel Tracey RN) Chew/Swallow Difficulties: No (10/19/2016 12:39:Rosibel Tracey RN) Inappropriate Wt Gain/Loss: No (10/19/2016 12:39:Rosibel Tracey RN) Presence Skin Breakdown/Ulcer: No (10/19/2016 12:39:Rosibel Tracey RN) Special Diet: No (10/19/2016 12:39:Rosibel Tracey RN) Pt Requests Biochemist Visit: No (10/19/2016 12:39:Rosibel Tracey RN) Hx of Any of the Following?: N/A (10/19/2016 12:39:Rosibel Tracey RN) New Diagnosis of: N/A (10/19/2016 12:39:Rosibel Tracey RN) Requires Assist w/Ambulation: No (10/19/2016 12:39:Rosibel Tracey RN) Uses Assist Device to Ambulate: No (10/19/2016 12:39:Rosibel Tracey RN) Pt Requires Help w/ADL's: No (10/19/2016 12:39:Rosibel Tracey RN)
--- NOTE | 2016-10-20 06:15 | L&D Care Plan ---
LD CARE PLANS Datetime Report Generated by CPN: 10/20/2016 06:15 Datetime: 10/19/2016 12:42 State: Actual (Rosibel Tracey RN) Related To: Labor and Delivery Process (Rosibel Tracey RN) Goal(s): Patients Pain will be Assessed and Managed; Patient will Verbalize Adequate Relief of Pain or the Ability to [place] with Current Pain (Rosibel Tracey RN) Interventions: Assess Pain Severity on Scale of 0 (None) to 5 (Severe); Assess Type, Location and Intensity of Pain Each Time Client Reports Discomfort and Notify Provider if Unusal Pain Develops; Encourage Proper Breathing and Relaxation Techniques; Offer Alternatives Such as Repositioning, Calm Environment, Massages, Diversional Activities, Ice Pack, Splinting, and Ambulation (Rosibel Tracey RN) Outcome: Patient will Report Absence or Relief of Pain Consistent with Established Pain Goal (Rosibel Tracey RN) Status: Ongoing (Rosibel Tracey RN) Outcome: Patient will have a Decrease in Signs and Symptoms of Discomfort (Rosibel Tracey RN) Status: Ongoing (Rosibel Tracey RN) State: Not Applicable (Rosibel Tracey RN) State: Risk For (Rosibel Tracey RN) Related To: Labor and Delivery Process; Impending Alterations in Family Dynamics; Feeding and Infant Care; Community Resources and Available Support Mechanisms (Rosibel Tracey RN) Goal(s): Patient will Accurately Verbalize Understanding of Plan of Care and Treatment; Patient and Family will Accurately Verbalize Understanding of the Disease Process (Rosibel Tracey RN) Interventions: Assess Motivation and Willingness of Patient/Family to Learn; Assess Preferred Learning Mode: One to One Instruction, Reading, Videos, Group Discussion or Demonstration; Assess Barriers to Learning: Pain, Emotional State, Language Barrier, Cognitive Impairment, Visual or Hearing Deficits; Assess Patient and Family Knowledge of Disease Process, Medications and Treatment; Discuss Therapy and/or Treatment Options, Describe Rationale Behind Management, Therapy and Treatment Recommendations (Rosibel Tracey RN) Outcome: Patient and Family will Verbalize Understanding of Condition, Treatment and Signs and Symptoms to Report (Rosibel Tracey RN) Status: Ongoing (Rosibel Tracey RN) Outcome: Patient will Identify Perceived Learning Needs and Express Motivation to Learn (Rosibel Tracey RN) Status: Ongoing (Rosibel Tracey RN) State: Risk For (Rosibel Tracey RN) Related To: Altered Tissue Integrity (Rosibel Tracey RN) Goal(s): The Patient will be Free of Infection, Vital Signs Stable and Lab Work within Normal Parameters (Rosibel Tracey RN) Interventions: Instruct and Reinforce Proper Handwashing, Hygiene, and Care Techniques to Patient and Family; Monitor Vital Signs; Monitor Patient for the Following Signs of Infection: Fever, Abdominal Tenderness, Unusual Discharge (Rosibel Tracey RN) Outcome: Patient will Remain Free of Infection (Rosibel Tracey RN) Status: Ongoing (Rosibel Tracey, REBEKAH) Outcome: Infection will be Recognized Early to Allow for Prompt Treatment (Rosibel Tracey RN) Status: Ongoing (Rosibel Tracey RN) State: Not Applicable (Rosibel Tracey RN) State: Not Applicable (Rosibel Tracey RN) State: Risk For (Rosibel Tracey RN) Related To: Vaginal Delivery (Rosibel Tracey RN) Goal(s): Patient will Maintain Optimal Skin Integrity, Free of Breakdown, Injury or Infection (Rosibel Tracey RN) Interventions: Complete Screening for Pressure Ulcer Risk and Initiate Protocol per Hospital Policy; Monitor Site of Skin Impairment for Color Changes, Redness, Swelling, Warmth, Pain or Other Signs of Infection (Rosibel Tracey RN) Outcome: Patient will not have Evidence of Injury Such as Skin Breakdown, Scrapes, Cuts, or Bruising (Rosibel Tracey RN) Status: Ongoing (Rosibel Tracey RN) State: Actual (Rosibel Tracey RN) Goal(s): Parents will Demonstrate Progressive Parenting Behaviors (Rosibel Tracey RN) Interventions: Assess for Adequacy of Support Systems; Observe and Encourage Patient/Family Infant Attachment and Bonding Activities and Provide Feedback; Assess Patient/Family Understanding of Infant's Condition and Provide Accurate Information About Condition, Treatment and Prognosis (Rosibel Tracey RN) Outcome: Patient/Family will Discuss Their Fears and the Possibility of Difficulties with Parenting (Rosibel Tracey RN) Status: Ongoing (Rosibel Tracey RN) Outcome: Patient/Family will Exhibit Appropriate Bonding Behaviors with Infant (Rosibel Tracey RN) Status: Ongoing (Rosibel Tracey RN) State: Not Applicable (Rosibel Tracey RN) State: Not Applicable (Rosibel Tracey RN) Datetime: 10/19/2016 12:40 State: Actual (Rosibel Tracey RN) Related To: Labor and Delivery Process (Rosibel Tracey RN) Goal(s): Patients Pain will be Assessed and Managed; Patient will Verbalize Adequate Relief of Pain or the Ability to [place] with Current Pain (Rosibel Tracey RN) Interventions: Assess Pain Severity on Scale of 0 (None) to 5 (Severe); Assess Type, Location and Intensity of Pain Each Time Client Reports Discomfort and Notify Provider if Unusal Pain Develops; Encourage Proper Breathing and Relaxation Techniques; Offer Alternatives Such as Repositioning, Calm Environment, Massages, Diversional Activities, Ice Pack, Splinting, and Ambulation (Rosibel Tracey RN) Outcome: Patient will Report Absence or Relief of Pain Consistent with Established Pain Goal (Rosibel Tracey RN) Status: Ongoing (Rosibel Tracey RN) Outcome: Patient will have a Decrease in Signs and Symptoms of Discomfort (Rosibel Tracey RN) Status: Ongoing (Rosibel Tracey RN) State: Not Applicable (Rosibel Trcaey RN) State: Risk For (Rosibel Tracey RN) Related To: Labor and Delivery Process; Impending Alterations in Family Dynamics; Feeding and Care; Community Resources and Available Support Mechanisms (Rosibel Tracey RN) Goal(s): Patient will Accurately Verbalize Understanding of Plan of Care and Treatment; Patient and Family will Accurately Verbalize Understanding of the Disease Process (Rosibel Tracey RN) Interventions: Assess Motivation and Willingness of Patient/Family to Learn; Assess Preferred Learning Mode: One to One Instruction, Reading, Videos, Group Discussion or Demonstration; Assess Barriers to Learning: Pain, Emotional State, Language Barrier, Cognitive Impairment, Visual or Hearing Deficits; Assess Patient and Family Knowledge of Disease Process, Medications and Treatment; Discuss Therapy and/or Treatment Options, Describe Rationale Behind Management, Therapy and Treatment Recommendations (Rosibel Tracey RN) Outcome: Patient and Family will Verbalize Understanding of Condition, Treatment and Signs and Symptoms to Report (Rosibel Tracey RN) Status: Ongoing (Rosibel Tracey RN) Outcome: Patient will Identify Perceived Learning Needs and Express Motivation to Learn (Rosibel Tracey RN) Status: Ongoing (Rosibel Tracey RN) State: Risk For (Rosibel Tracey RN) Related To: Altered Tissue Integrity (Rosibel Tracey RN) Goal(s): The Patient will be Free of Infection, Vital Signs Stable and Lab Work within Normal Parameters (Rosibel Tracey RN) Interventions: Instruct and Reinforce Proper Handwashing, Hygiene, and Care Techniques to Patient and Family; Monitor Vital Signs; Monitor Patient for the Following Signs of Infection: Fever, Abdominal Tenderness, Unusual Discharge (Rosibel Tracey RN) Outcome: Patient will Remain Free of Infection (Rosibel Tracey RN) Status: Ongoing (Rosibel Tracey RN) Outcome: Infection will be Recognized Early to Allow for Prompt Treatment (Rosibel Tracey RN) Status: Ongoing (Rosibel Tracey RN) State: Not Applicable (Rosibel Tracey RN) State: Not Applicable (Rosibel Tracey RN) State: Risk For (Rosibel Tracey RN) Related To: Vaginal Delivery (Rosibel Tracey RN) Goal(s): Patient will Maintain Optimal Skin Integrity, Free of Breakdown, Injury or Infection (Rosibel Tracey RN) Interventions: Complete Screening for Pressure Ulcer Risk and Initiate Protocol per Hospital Policy; Monitor Site of Skin Impairment for Color Changes, Redness, Swelling, Warmth, Pain or Other Signs of Infection (Rosibel Tracey RN) Outcome: Patient will not have Evidence of Injury Such as Skin Breakdown, Scrapes, Cuts, or Bruising (Rosibel Tracey RN) Status: Ongoing (Rosibel Tracey RN) State: Actual (Rosibel Tracey RN) Goal(s): Parents will Demonstrate Progressive Parenting Behaviors (Rosibel Tracey RN) Interventions: Assess for Adequacy of Support Systems; Observe and Encourage Patient/Family Infant Attachment and Bonding Activities and Provide Feedback; Assess Patient/Family Understanding of Infant's Condition and Provide Accurate Information About Condition, Treatment and Prognosis (Rosibel Tracey RN) Outcome: Patient/Family will Discuss Their Fears and the Possibility of Difficulties with Parenting (Rosibel Tracey RN) Status: Ongoing (Rosibel Tracey RN) Outcome: Patient/Family will Exhibit Appropriate Bonding Behaviors with (Rosibel Tracey RN) Status: Ongoing (Rosibel Tracey RN) State: Not Applicable (Rosibel Tracey RN) State: Not Applicable (Rosibel Tracey RN)
[2016-10-20 07:32] LABS: HEMATOCRIT 27.8 % (36.0-47.0); HGB HCT DIFFERENCE -0.8; MEAN CORPUSCULAR HGB CONC 32.5 g/dL (32.0-36.0); MEAN CORPUSCULAR VOLUME 77 fl (80-97); RED BLOOD COUNT 3.62 10^6/uL (3.72-5.28); RED CELL DISTRIBUTION WIDTH 16.7 % (11.5-14.0)
--- NOTE | 2016-10-20 09:51 | PDOC PROGRESS REPORT ---
Subjective-OB Subjective: Post Delivery Day: 1 26 year old. Denies any needs at this time, states lochia is stable, pain is well controlled, voiding without difficulty. Physical Exam (OB) Vital Signs: Temp Pulse Resp BP Pulse Ox 97.2 F 71 18 91/56 L 100 10/19/16 20:30 10/19/16 20:30 10/19/16 20:30 10/19/16 20:30 10/19/16 20:30 Intake & Output 10/19/16 10/20/16 10/21/16 06:59 06:59 06:59 Weight 61.69 kg - PIH/Pre-Eclampsia DTR's: 1 + Clonus: Negative Headache: Absent Epigastric Pain: No Visual Changes: No - Lochia Lochia Amount: Scant < 10 ml Lochia Color: Rubra/Red - Abdomen Description: Soft, Round Hernia Present: No Fundal Description: Firm Fundal Height: u/u - u/2 Objective-Diagnostic Laboratory: 10/20/16 07:16 10/19/16 10/19/16 10/20/16 13:12 13:12 07:16 WBC 18.3 H 13.0 H RBC 4.12 3.62 L Hgb 10.1 L 9.0 L Hct 31.8 L 27.8 L MCV 77 L 77 L MCH 24.6 L 25.0 L MCHC 31.8 L 32.5 RDW 16.8 H 16.7 H Plt Count 290 264 Seg Neutrophils % 88.4 H Lymphocytes % 7.3 L Monocytes % 4.0 Eosinophils % 0.1 Basophils % 0.2 Absolute Neutrophils 16.2 H Absolute Lymphocytes 1.3 Absolute Monocytes 0.7 Absolute Eosinophils 0.0 Absolute Basophils 0.0 Blood Type O POSITIVE Antibody Screen NEGATIVE Assessment and Plan(PN) - Assessment and Plan (1) Anemia Qualifiers: Anemia type: other cause Other causes of anemia: other cause, not classified Qualified Code(s): D64.89 - Other specified anemias Is this a current diagnosis for this admission?: YesPlan: ferrous sulfate increase dietary iron (2) History of seizure Is this a current diagnosis for this admission?: YesPlan: neuro f/u (3) Vaginal delivery Is this a current diagnosis for this admission?: YesPlan: routine post care - Time Spent with Patient Time with patient: Less than 15 minutes Critical Time spent with patient: Less than 15 minutes Medications reviewed and adjusted accordingly: Yes - Disposition Anticipated Discharge: Home Within: within 24 hours
[2016-10-20] MEDS ORDERED: SENNOSIDES/DOCUSATE 8.6-50 MG 1 EACH TABLET PO SCH (10:00)
[2016-10-20] MEDS ORDERED: [UNRECOGNIZED DRUG - REMARK] PO SCH (10:00)
[2016-10-20] MEDS ORDERED: PRENATAL VITAMIN W-O CA NO5/FE FUMARATE/FA CAPSULE PO SCH (10:00)
[2016-10-20] MEDS: DOCUSATE SODIUM 100 MG CAPSULE PO SCH (17:44)
[2016-10-20] MEDS: FERROUS SULFATE 325 MG TABLET PO SCH (17:44)
[2016-10-20] MEDS: FAMOTIDINE 20 MG TABLET PO SCH (21:57)
[2016-10-21] MEDS: IBUPROFEN 800 MG TABLET PO SCH ×2 (05:30→14:39)
[2016-10-21 09:39] VITALS: BP 111/69
[2016-10-21] MEDS: FERROUS SULFATE 325 MG TABLET PO SCH (09:58)
[2016-10-21] MEDS: FAMOTIDINE 20 MG TABLET PO SCH (09:58)
[2016-10-21] MEDS: DOCUSATE SODIUM 100 MG CAPSULE PO SCH (09:58)
== END 2016-10-21 15:00 | disposition home or self-care (01) | DRG 775 ==
LOC: LC 12:20 → LR 12:24 → 2S 15:14
PROVIDERS: ADMIT Specialist; ATTEND Specialist
PROC: 10E0XZZ Delivery of Products of Conception, External Approach (ICD-10-PCS; principal; 2016-10-19)
PROC: 10907ZC Drainage of Amniotic Fluid, Therapeutic from Products of Conception, Via Natural or Artificial Opening (ICD-10-PCS; 2016-10-19)
PROC: 4A1HXCZ Monitoring of Products of Conception, Cardiac Rate, External Approach (ICD-10-PCS; 2016-10-19)
DX: O99.02 Anemia complicating childbirth (principal); D64.89 Other specified anemias; O99.344 Other mental disorders complicating childbirth; F31.9 Bipolar disorder, unspecified; O99.824 Streptococcus B carrier state complicating childbirth; O62.3 Precipitate labor; O32.6XX0 Maternal care for compound presentation, not applicable or unspecified; O77.0 Labor and delivery complicated by meconium in amniotic fluid; O69.81X0 Labor and delivery complicated by cord around neck, without compression, not applicable or unspecified; Z3A.40 40 weeks gestation of pregnancy; Z37.0 Single live birth
CPT/HCPCS: 36415; 85025; 85027; 86592; 86850; 86900; 86901; 88307; 90686; 90715; J2540; J2590

== ENCOUNTER 2017-10-18 22:02 | Inpatient (IN) | payer MEDICAID ==
[2017-10-18] MEDS ORDERED: RINGERS SOLUTION,LACTATED 1,000 ML IV ONE (22:36)
[2017-10-18] MEDS ORDERED: RINGERS SOLUTION,LACTATED 1,000 ML IV PRN (22:36)
[2017-10-18] MEDS ORDERED: OXYTOCIN/NORMAL SALINE 20 UNIT/1,000 ML RTUINJ ONE (22:40)
[2017-10-18] MEDS ORDERED: LIDOCAINE 1% INJ-PF (10 MG/ML) 30 ML SDV ONE (22:40)
[2017-10-18] MEDS ORDERED: MISOPROSTOL 0.2 MG TABLET ONE (22:40)
[2017-10-18 22:54] LABS: ABSOLUTE LYMPHOCYTES (AUTO) 2.4 10^3/uL (0.5-4.7); ABSOLUTE MONOCYTES (AUTO) 0.8 10^3/uL (0.1-1.4); ABSOLUTE NEUT (AUTO) 9.3 10^3/uL (1.7-8.2); BASOPHILS % (AUTO) 0.3 % (0-2); EOSINOPHILS % (AUTO) 0.3 % (0-6); HEMATOCRIT 27.9 % (36.0-47.0); HEMOGLOBIN 9.1 g/dL (12.0-15.5); LYMPHOCYTES % (AUTO) 19.2 % (13-45); MEAN CORPUSCULAR HEMOGLOBIN 24.4 pg (27.0-33.4); MEAN CORPUSCULAR HGB CONC 32.5 g/dL (32.0-36.0); MEAN CORPUSCULAR VOLUME 75 fl (80-97); MONOCYTES % (AUTO) 6.5 % (3-13); PLATELET COUNT 338 10^3/uL (150-450); RED BLOOD COUNT 3.72 10^6/uL (3.72-5.28); RED CELL DISTRIBUTION WIDTH 17.3 % (11.5-14.0); SEGMENTED NEUTROPHILS % (AUTO) 73.7 % (42-78); TOTAL CELLS COUNTED % (AUTO) 100 %; WHITE BLOOD COUNT 12.6 10^3/uL (4.0-10.5)
[2017-10-18] MEDS ORDERED: PROMETHAZINE HCL INJ 25 MG/1 ML VIAL ONE (22:56)
[2017-10-18] MEDS ORDERED: NALBUPHINE HCL INJ 10 MG/1 ML AMPULE ONE (22:56)
[2017-10-18 23:08] LABS: APPEARANCE,URINE CLOUDY; BILIRUBIN,URINE NEGATIVE (NEGATIVE); COLOR,URINE YELLOW; GLUCOSE, URINE 50 mg/dL (NEGATIVE); KETONES,URINE NEGATIVE (NEGATIVE); LEUKOCYTE ESTERASE,URINE LARGE (NEGATIVE); NITRITE,URINE NEGATIVE (NEGATIVE); PROTEIN,URINE 30 mg/dL (NEGATIVE); URINE SPECIFIC GRAVITY 1.024
[2017-10-19 00:06] LABS: URINE AMPHETAMINES SCREEN NEGATIVE; URINE BARBITURATES SCREEN NEGATIVE; URINE BENZODIAZEPINES SCREEN NEGATIVE; URINE COCAINE SCREEN NEGATIVE; URINE MARIJUANA (THC) SCREEN NEGATIVE; URINE METHADONE SCREEN NEGATIVE; URINE PHENCYCLIDINE SCREEN NEGATIVE
[2017-10-19] MEDS ORDERED: NALBUPHINE HCL INJ 10 MG/1 ML AMPULE ONE ×2 (04:19→04:22)
[2017-10-19] MEDS ORDERED: OXYTOCIN/NORMAL SALINE 20 UNIT/1,000 ML RTUINJ IV PRN ×2 (07:18→09:08)
--- NOTE | 2017-10-19 08:28 | Admission Physical ---
Datetime Report Generated by CPN: 10/19/2017 08:28 CURRENT ADMISSION Hx Assessment: The History has been Reviewed and is Current Chief Complaint: Uterine Contractions Indication for Induction: Not Applicable Indication for Induction: Term, Intrauterine ; Active Labor Admit Plan: Admit to Unit; Initiate Labor Protocol ALLERGIES Medication Allergies: No Medication Allergies: No Known Allergies (10/18/2017) Medication Allergies: No Known Allergies (10/14/2016) Latex: No Latex Allergies OBSTETRICAL HISTORY EDC: 10/12/2017 00:00 : 3 Para: 2 Term: 2 : 0 SAB: 0 IAB: 0 Ectopic: 0 Livin Cesareans: 0 VBACs: 0 Multiple Births: 0 Gestational Diabetes: No Rh Sensitization: No Incompetent Cervix: No KELLY: No Infertility: No ART Treatment: No Uterine Anomaly: No IUGR: No Hx Previous C/S: No Macrosomia: No Hx Loss/Stillborn: No PIH: No Hx : No Placenta Previa/Abruption: No Depression/PP Depression: No PTL/PROM: No Post Hemorrhage: No Current Procedures: Ultrasound; NST Obstetrical History Comments: @ 41.5wks male 6lbs 12 oz G2 @ 41 wks female G3-Current SEE RECORDS Alcohol: No Marijuana : No Cocaine: No Other Illicit Drugs: No Cigarettes: Never Smoker. [id number] MEDICAL HISTORY Diabetes: No Blood Transfusion: No Pulmonary Disease (Asthma, TB): No Breast Disease: No Hypertension: No Mail Distributor Surgery: No Heart Disease: No Hosp/Surgery: Yes Autoimmune Disorder: No Anesthetic Complications: No Kidney Disease: No Abnormal Pap Smear: Yes Neuro/Epilepsy: Yes Psychiatric Disorders: Yes Other Medical Diseases: No Hepatitis/Liver Disease: No Significant Family History: No Varicosities/Phlebitis: No Trauma/Violence : No Thyroid Dysfunction: No Medical History Comments: Abn pap-LGSIL/WILLIAN 1/+HPV; childbirth x 2; Psych-involuntary commitment Sep 2016; Grand mal seizures-last 03/2014; ADHD; Bipolar and Manic Depression, scar from some type of tube in chest d/t prematurity INFECTIOUS HISTORY Gonorrhea: No Genital Herpes: No Chlamydia: No Tuberculosis: No Syphilis: No Hepatitis: No HIV/AIDS Exposure: No Rash or Viral Illness: No HPV: Yes Infectious History Comments: + HPV PHYSICAL EXAM General: Normal HEENT: Normal Neurologic: Normal Thyroid: Deferred Heart: Normal Lungs: Normal Breast: Deferred Back: Normal Abdomen: Normal Extremities: Normal DTRs: Normal Pelvic Type: Adequate Physical Exam Comments: Gravid Vital Signs: Reviewed; Within Normal Limits VAGINAL EXAM Dilatation: 7 Effacement: 90 Station: -3 MEMBRANES Membranes: Ruptured Amniotic Fluid Color: Clear FETUS A EGA: 41.0 Monitoring: External US FHR- Baseline: 130 Variability: Moderate 6-25bpm Accelerations: 15X15 Decelerations: None FHR Category: Category I Presentation: Vertex Admit Comment: Hx Psych Invol commitment Sep 2016 Desires BTL Currently 7cm dilated GBS Negative Anticipate PLANS FOR LABOR AND DELIVERY Labor and Delivery: Other, Specify Pain Management: Medications Feeding Preference: Formula Circumcision: Yes INFORMED CONSENT Assignment: Maggie Aguilera MD Signature: with User ID: [email or web address] : with User ID: [email or web address] : I personally evaluated and examined the patient in conjunction with the MLP and agree with the assessment, treatment plan and disposition.
[2017-10-19] MEDS ORDERED: PROMETHAZINE HCL 25 MG SUPP.RECT PR PRN (09:08)
[2017-10-19] MEDS ORDERED: ZOLPIDEM TARTRATE 5 MG TABLET PO PRN (09:08)
[2017-10-19] MEDS ORDERED: NA PHOS,M-B/NA PHOS,DI-BA (ADULT) 133 ML ENEMA PR PRN (09:08)
[2017-10-19] MEDS ORDERED: BENZOCAINE/MENTHOL AEROSOL SPRAY 56 ML TOP PRN (09:08)
[2017-10-19] MEDS ORDERED: PROMETHAZINE HCL INJ 25 MG/1 ML VIAL IV PRN (09:08)
[2017-10-19] MEDS ORDERED: MAGNESIUM HYDROXIDE SUSP 30 ML UDCUP PO PRN (09:08)
[2017-10-19] MEDS ORDERED: DIPH/PERTUSS(ACELL)/TETANUS VAC/PF 0.5 ML SYR (>=10YO) IM PRN (09:08)
[2017-10-19] MEDS ORDERED: PROMETHAZINE HCL 25 MG TABLET PO PRN (09:08)
[2017-10-19] MEDS ORDERED: DIBUCAINE 1% OINTMENT 28 GM TP PRN (09:08)
[2017-10-19] MEDS ORDERED: ACETAMINOPHEN 650 MG SUPP.RECT PR PRN (09:08)
[2017-10-19] MEDS ORDERED: DIPHENHYDRAMINE HCL 25 MG CAPSULE PO PRN (09:08)
[2017-10-19] MEDS ORDERED: MEASLES,MUMPS&RUBELLA VACC/PF 0.5 ML VIAL SUBCUT PRN (09:08)
[2017-10-19] MEDS ORDERED: PSEUDOEPHEDRINE HCL 30 MG TABLET PO PRN (09:08)
[2017-10-19] MEDS ORDERED: GLYCERIN/WITCH HAZEL LEAF 1 EACH MED..PAD TP PRN (09:08)
[2017-10-19] MEDS ORDERED: ACETAMINOPHEN WITH CODEINE #3 TABLET PO PRN (09:08)
--- NOTE | 2017-10-19 09:59 | Warning Signs in Babies ---
VOD Warning Signs Datetime Report Generated by [facility]: 10/19/2017 09:59 VOD#608 -Warning Signs in Babies: Viewed with Parent(s)/Family (10/18/2017 22:30:Belia Aj RN)
--- NOTE | 2017-10-19 10:19 | Delivery Summary ---
Del Sum A-C Datetime Report Generated by CPN: 10/19/2017 10:18 DELIVERY PERSONNEL DELIVERY PERSONNEL: [id number] Delivery Doctor:: Gila Cunha CNM Nurse Printing Screen Assembler Certified:: Gila Cunha CNM Labor and Delivery Nurse:: Belia Aj RNmanaged security sales consultant Nurse:: LUPILLO Conn Paint Stockman:: LUPILLO Lomas Nursery Nurse:: Juve WESLEY Student Observers:: x2 Support Staff/FIREARMS INSPECTOR: Erica Jacobsen CNA II Support Staff/FIREARMS INSPECTOR: Mariel Low, AUTOMATIC SPLICING MACHINE OPERATOR MATERNAL INFORMATION Delivery Anesthesia: None Medications After Delivery: Pitocin Bolus-Please Comment Meds After Delivery Comment: pitocin bolus at 999 Estimated Blood Loss (ml): 200 Maternal Complications: None Provider Comments: SR of forebag with clear fluid. Patient screaming out of control with contractions. of live male in vertex OA to MARIN at 0841. Cord clamped x2, then cut by territory account manager as baby limp, then stimulated and placed on mother's abdomen. Spontaneous respirations and cry with stimulation. 3-vessel cord. Apgars 7-8. Placenta, membranes, and cord expelled at 0844, Gonzalez presentation. Perineum inspected-several skidmarks, no repair needed. FF at U-3. Hemostasis achieved. Patient stable. LABOR SUMMARY EDC: 10/12/2017 00:00 No. Babies in Womb: 1 Attempted: No Labor Anesthesia: IV Sedation LABOR INFORMATION Reason for Induction: Not Applicable Onset of Labor: 10/19/2017 03:51 Complete Dilatation: 10/19/2017 08:29 Oxytocin: Augmentation Group B Beta Strep: Negative Antibiotics # of Doses: 0 Steroids Given: None Reason Steroids Not Administered: Not Applicable MEMBRANES Membranes Rupture Method: Spontaneous Rupture of Membranes: 10/19/2017 06:13 Length of Rupture (hr): 2.47 Amniotic Fluid Color: Clear Amniotic Fluid Amount: Moderate Amniotic Fluid Odor: Normal STAGES OF LABOR Stage 1 hr: 4 Stage 1 min: 38 Stage 2 hr: 0 Stage 2 min: 12 Stage 3 hr: 0 Stage 3 min: 3 Total Time in Labor hr: 4 Total Time in Labor min: 53 VAGINAL DELIVERY Episiotomy: None Laceration #1: None Laceration Extension #1: N/A Laceration #2: None Laceration Extension #2: N/A Laceration #3: None Laceration Extension #3: N/A Laceration Repair: Not Applicable Laceration Repair Note: Skidmarks only Sponge Count Correct: N/A Sharps Count Correct: Yes CSECTION DELIVERY CSection Incision: N/A BABY A INFORMATION Infant Delivery Date/Time: 10/19/2017 08:41 Method of Delivery: Vaginal Born in Route : No : N/A Forceps: N/A Vacuum Extraction: N/A Shoulder Dystocia : No PRESENTATION/POSITION BABY A Presentation: Cephalic Cephalic Presentation: Vertex Vertex Position: Left Occipital Anterior Breech Presentation: N/A PLACENTA INFORMATION BABY A Placenta Delivery Time : 10/19/2017 08:44 Placenta Method of Delivery: Spontaneous SCORES BABY A Heart Rate 1 min: >100 bpm Resp Effort 1 min: Good Cry Reflex Irritability 1 min: Cough or Sneeze or Pulls Away Muscle Tone 1 min: Some Flexion of Extremities Color 1 min: Blue/Pale SCORE 1 MIN: 7 Heart Rate 5 min: >100 bpm Resp Effort 5 min: Good Cry Reflex Irritability 5 min: Cough or Sneeze or Pulls Away Muscle Tone 5 min: Active Motion Color 5 min: Blue/Pale SCORE 5 MIN: 8 INFORMATION BABY A Gestational Age at Delivery: 41.0 Gestational Status: Late Term- 41- 41.6 Weeks Outcome : Liveborn Condition : Stable Sex: Male IDENTIFICATION BABY A Verification Date/Time: 10/19/2017 08:55 ID Band Number: [id number] Mother's Name Verified: Yes Infant RN Verifying Infant: R Chris RN, K Yoni RNC WEIGHT/LENGTH BABY A Infant Birthweight (gm): 3540 Infant Weight (lb): 7 Weight (oz): 13 Length (in): 20.25 Length (cm): 51.44 CORD INFORMATION BABY A No. Cord Vessels: 3 Nuchal Cord : N/A Cord Blood Taken: Yes-For Eval (Mom's Blood Type - or O+) Infant Suction: Mouth; Nose ASSESSMENT BABY A Infant Complications: None Physical Findings at Delivery: Within Normal Limits; Bruising Physical Findings- Other: facial bruising, terminal meconium at delivery Infant Respirations: Appears Normal Skin to Skin: Yes Electric Motor Controls Assembler/ALS Called : No Infant Care By: D Bellavatne RNC Transferred To: Remains with Mother BABY B INFORMATION : N/A SIGNATURES Assignment: Maggie Aguilera MD Signature: with User ID: [email or web address] : with User ID: Reba : I personally evaluated and examined the patient in conjunction with the MLP and agree with the assessment, treatment plan and disposition.
[2017-10-19] MEDS: SENNOSIDES/DOCUSATE 8.6-50 MG 1 EACH TABLET PO SCH (13:02)
[2017-10-19] MEDS: DOCUSATE SODIUM 100 MG CAPSULE PO SCH ×2 (13:03→18:41)
[2017-10-19] MEDS: FAMOTIDINE 20 MG TABLET PO SCH ×2 (13:03→21:08)
[2017-10-19] MEDS: FERROUS SULFATE 325 MG TABLET PO SCH ×2 (13:03→18:41)
[2017-10-19] MEDS: IBUPROFEN 800 MG TABLET PO SCH ×2 (13:03→21:08)
[2017-10-19] MEDS: ACETAMINOPHEN WITH CODEINE #3 TABLET PO PRN ×2 (15:06→19:54)
[2017-10-20] MEDS: IBUPROFEN 800 MG TABLET PO SCH ×3 (05:49→21:04)
[2017-10-20 07:27] LABS: HEMATOCRIT 26.1 % (36.0-47.0); HEMOGLOBIN 8.4 g/dL (12.0-15.5); MEAN CORPUSCULAR HEMOGLOBIN 24.2 pg (27.0-33.4); MEAN CORPUSCULAR HGB CONC 32.3 g/dL (32.0-36.0); MEAN CORPUSCULAR VOLUME 75 fl (80-97); PLATELET COUNT 296 10^3/uL (150-450); RED BLOOD COUNT 3.48 10^6/uL (3.72-5.28); RED CELL DISTRIBUTION WIDTH 17.3 % (11.5-14.0); WHITE BLOOD COUNT 14.7 10^3/uL (4.0-10.5)
[2017-10-20] MEDS: PRENATAL VITAMIN W DHA CAPSULE PO SCH (09:34)
[2017-10-20] MEDS: FAMOTIDINE 20 MG TABLET PO SCH ×2 (09:34→21:05)
[2017-10-20] MEDS: FERROUS SULFATE 325 MG TABLET PO SCH ×2 (09:35→18:26)
[2017-10-20] MEDS: DOCUSATE SODIUM 100 MG CAPSULE PO SCH ×2 (09:35→18:26)
[2017-10-20] MEDS: SENNOSIDES/DOCUSATE 8.6-50 MG 1 EACH TABLET PO SCH (09:36)
--- NOTE | 2017-10-20 10:20 | PDOC PROGRESS REPORT ---
Subjective-OB Progress Note for:: 10/20/17 Subjective: Day 1 s/p Denies concerns, voiding without difficulty, lochia is stable, pain well controlled. Physical Exam (OB) Vital Signs: Temp Pulse Resp BP Pulse Ox 98.0 F 81 16 112/64 98 10/20/17 08:20 10/20/17 08:20 10/20/17 08:20 10/20/17 08:20 10/20/17 08:20 Intake & Output 10/19/17 10/20/17 10/21/17 06:59 06:59 06:59 Weight 63 kg - PIH/Pre-Eclampsia DTR's: 2 + Clonus: Negative Headache: Absent Epigastric Pain: No Visual Changes: No - Lochia Lochia Amount: Scant < 10 ml Lochia Color: Rubra/Red - Abdomen Description: Tender, Soft, Flat Hernia Present: No Fundal Description: Firm, Midline Fundal Height: u/u - u/2 Objective-Diagnostic Laboratory: 10/20/17 07:08 10/20/17 07:08 WBC 14.7 H RBC 3.48 L Hgb 8.4 L Hct 26.1 L MCV 75 L MCH 24.2 L MCHC 32.3 RDW 17.3 H Plt Count 296 Assessment and Plan(PN) - Assessment and Plan (1) Vaginal delivery Is this a current diagnosis for this admission?: Yes Plan: routine pp care (2) Anemia Qualifiers: Anemia type: iron deficiency Is this a current diagnosis for this admission?: Yes Plan: ferrous sulfate increase dietary iron (3) History of seizure Is this a current diagnosis for this admission?: Yes Plan: monitor (4) Term Is this a current diagnosis for this admission?: Yes Plan: d/c planning - Time Spent with Patient Time with patient: Less than 15 minutes Critical Time spent with patient: Less than 15 minutes Medications reviewed and adjusted accordingly: Yes - Disposition Anticipated Discharge: Home Within: within 24 hours
[2017-10-20] MEDS: ACETAMINOPHEN WITH CODEINE #3 TABLET PO PRN (20:28)
[2017-10-21] MEDS: IBUPROFEN 800 MG TABLET PO SCH (06:10)
--- NOTE | 2017-10-21 08:46 | PDOC DISCHARGE SUMMARY ---
Final Diagnosis Discharge Date: 10/21/17 - Final Diagnosis (1) Vaginal delivery Is this a current diagnosis for this admission?: Yes (2) Anemia Is this a current diagnosis for this admission?: Yes (3) History of seizure Is this a current diagnosis for this admission?: Yes (4) Term Is this a current diagnosis for this admission?: Yes Discharge Data - Discharge Medication Prescriptions: Docusate Sodium [Colace 100 mg Capsule] 100 mg PO BID #60 capsule Ferrous Sulfate [Feosol 325 mg Tablet] 325 mg PO BID #60 tablet Ibuprofen [Motrin 800 mg Tablet] 800 mg PO Q8 #60 tablet Medroxyprogesterone Acetate [Depo-Provera] 150 mg IM ONCE #1 ml Home Medications: Vit 40/Iron/Folic/Dha [ Multi-Dha Softgel] 1 cap PO DAILY 10/14 Docusate Sodium [Colace 100 mg Capsule] 100 mg PO BID #60 capsule 10/21/17 Ferrous Sulfate [Feosol 325 mg Tablet] 325 mg PO BID #60 tablet 10/21/17 Ibuprofen [Motrin 800 mg Tablet] 800 mg PO Q8 #60 tablet 10/21/17 Medroxyprogesterone Acetate [Depo-Provera] 150 mg IM ONCE #1 ml 10/21/17 Gestational Age: 41 Reason(s) for Admission: Onset of Labor Procedures: NST Intrapartum Procedure(s): Spontaneous Vaginal Delivery - Data Baby 1 Male at 1 minute: 7 at 5 minutes: 8 Weight: 3540 kg Home with Mother: Yes Complications: No - Diagnosis Test Laboratory: Temp Pulse Resp BP Pulse Ox 98.2 F 89 16 116/69 98 10/20/17 19:35 10/20/17 19:35 10/20/17 19:35 10/20/17 19:35 10/20/17 19:35 10/18/17 10/18/17 10/20/17 22:15 22:39 07:08 RBC 3.72 3.48 L Hgb 9.1 L 8.4 L Hct 27.9 L 26.1 L Urine Opiates Screen NEGATIVE - Discharge information/Instructions Discharge Activity: Activity As Tolerated, Pelvic Rest, No tub bath Discharge Diet: Regular Disposition: HOME, SELF-CARE Follow up with: [facility] in: 4, Weeks - depo before discharge
[2017-10-21 08:48] VITALS: BP 116/58
[2017-10-21] MEDS: SENNOSIDES/DOCUSATE 8.6-50 MG 1 EACH TABLET PO SCH (10:50)
[2017-10-21] MEDS: PRENATAL VITAMIN W DHA CAPSULE PO SCH (10:50)
[2017-10-21] MEDS: FERROUS SULFATE 325 MG TABLET PO SCH (10:50)
[2017-10-21] MEDS: DOCUSATE SODIUM 100 MG CAPSULE PO SCH (10:50)
[2017-10-21] MEDS: FAMOTIDINE 20 MG TABLET PO SCH (10:52)
[2017-10-21] MEDS ORDERED: MEDROXYPROGESTERONE ACET INJ 150 MG/1 ML VIAL IM ONE (14:00)
== END 2017-10-21 14:02 | disposition home or self-care (01) | DRG 775 ==
LOC: LC 22:02 → LR 22:28 → 2S 10-19 11:30
PROVIDERS: ADMIT Obstetrics & Gynecology Gynecology; ATTEND Obstetrics & Gynecology Gynecology
PROC: 10E0XZZ Delivery of Products of Conception, External Approach (ICD-10-PCS; principal; 2017-10-18)
PROC: 4A1HXCZ Monitoring of Products of Conception, Cardiac Rate, External Approach (ICD-10-PCS; 2017-10-18)
DX: O48.0 Post-term pregnancy (principal); O99.02 Anemia complicating childbirth; D50.9 Iron deficiency anemia, unspecified; Z3A.41 41 weeks gestation of pregnancy; Z37.0 Single live birth
CPT/HCPCS: 36415; 80307; 81005; 85025; 85027; 86592; 86850; 86900; 86901; 88307; J1050; J2300; J2550; J2590; J3490

== ENCOUNTER 2017-12-18 05:54 | Day surgery (SDC) | payer MEDICAID ==
[2017-12-15 10:59] LABS: HEMATOCRIT 39.2 % (36.0-47.0); HEMOGLOBIN 12.8 g/dL (12.0-15.5); MEAN CORPUSCULAR HEMOGLOBIN 25.6 pg (27.0-33.4); MEAN CORPUSCULAR HGB CONC 32.7 g/dL (32.0-36.0); MEAN CORPUSCULAR VOLUME 78 fl (80-97); PLATELET COUNT 294 10^3/uL (150-450); RED CELL DISTRIBUTION WIDTH 19.7 % (11.5-14.0); WHITE BLOOD COUNT 7.4 10^3/uL (4.0-10.5)
[2017-12-15 12:18] LABS: APPEARANCE,URINE CLEAR; BILIRUBIN,URINE NEGATIVE (NEGATIVE); COLOR,URINE YELLOW; GLUCOSE, URINE NEGATIVE (NEGATIVE); KETONES,URINE NEGATIVE (NEGATIVE); LEUKOCYTE ESTERASE,URINE SMALL (NEGATIVE); NITRITE,URINE NEGATIVE (NEGATIVE); PROTEIN,URINE NEGATIVE (NEGATIVE); URINE SPECIFIC GRAVITY 1.011; UROBILINOGEN,URINE NEGATIVE mg/dL (<2.0)
[~2017-12-18 05:54] MED LIST: LACTATED RINGERS 1000 ML IV PRN; LIDOCAINE 0.5% INJ-PF (5 MG/ML) 50 ML SDV SUBCUT PRN
[2017-12-18] MEDS ORDERED: LIDOCAINE 2% INJ-PF (20 MG/ML) 10 ML AMPUL ONE (06:42)
[2017-12-18] MEDS ORDERED: MIDAZOLAM 2 MG/2 ML INJ ONE (06:42)
[2017-12-18] MEDS ORDERED: FENTANYL CITRATE INJ/PF 250 MCG/5 ML AMPULE ONE (06:42)
[2017-12-18] MEDS ORDERED: DEXAMETHASONE SOD PHOSPHATE INJ 4 MG/1 ML VIAL ONE (06:43)
[2017-12-18] MEDS ORDERED: ONDANSETRON HCL INJ/PF 4 MG/2 ML SDV ONE (06:43)
[2017-12-18] MEDS ORDERED: PROPOFOL INJ 200 MG/20 ML VIAL IV ONE (06:43)
[2017-12-18] MEDS ORDERED: ACETAMINOPHEN 100 ML IV ONE (06:43)
[2017-12-18] MEDS ORDERED: DIPHENHYDRAMINE HCL 50 MG/ML VIAL IV PRN (07:50)
[2017-12-18] MEDS ORDERED: PROMETHAZINE HCL INJ 25 MG/1 ML VIAL IV PRN ×2 (07:50)
[2017-12-18] MEDS ORDERED: OXYCODONE-ACETAMINOPHEN 5-325 MG TABLET PO PRN ×5 (07:50→09:30)
[2017-12-18] MEDS ORDERED: FENTANYL CITRATE INJ/PF 100 MCG/2 ML AMPUL IV PRN ×3 (07:50)
[2017-12-18] MEDS ORDERED: ONDANSETRON HCL INJ/PF 4 MG/2 ML SDV IV PRN (07:50)
[2017-12-18] MEDS ORDERED: MORPHINE SULFATE 10 MG/ML INJ IV PRN (07:50)
[2017-12-18] MEDS ORDERED: MEPERIDINE HCL/PF INJ 25 MG/1 ML DISP.SYRIN IV PRN (07:50)
[2017-12-18] MEDS: FENTANYL CITRATE INJ/PF 100 MCG/2 ML AMPUL ONE ×2 (08:26→08:31)
--- NOTE | 2017-12-18 08:28 | Operative Report ---
Operative Report DATE OF SURGERY: 12/18/17 PREOPERATIVE DIAGNOSIS: Patient desires surgical sterilization POSTOPERATIVE DIAGNOSIS: Same OPERATION: Laparoscopic tubal ligation with Filshie clips SURGEON: FAISAL MOORE ANESTHESIA: GA TISSUE REMOVED OR ALTERED: Fallopian tubes COMPLICATIONS: None ESTIMATED BLOOD LOSS: Minimal INTRAOPERATIVE FINDINGS: Normal uterus tubes and ovaries PROCEDURE: Patient was taken the OR and placed in supine position. General anesthesia was induced. She was placed in the dorsolithotomy position using Todd stirrups. Perineum and vagina were prepared and draped in sterile fashion. She had voided prior to surgery and did not need catheterization. Her abdomen was prepared sterilely as well. Incision was made at the umbilicus natural umbilical defect was identified and dilated with Kia clamp. This allowed placement of a blunt port. Laparoscopy confirmed appropriate placement and the abdomen was insufflated with CO2 gas. Each fallopian tube was identified and followed out to its fimbriated end and using the operative scope Filshie clip was placed across each mid isthmic portion of both fallopian tubes. At the end of the case gas was allowed to escape from the abdomen. The scope and port were removed in unison. The fascia at the umbilicus was closed with a 2-0 Vicryl stitch and skin closed with a 4-0 undyed Vicryl stitch. The sponge stick was removed from the vagina at the end of the case. She was extubated in the OR and taken recovery room stable condition.
[2017-12-18] MEDS ORDERED: RINGERS SOLUTION,LACTATED 1,000 ML IV PRN (09:00)
[2017-12-18] MEDS ORDERED: KETOROLAC TROMETHAMINE INJ/PF 30 MG/1 ML SDV ONE (09:06)
[2017-12-18] MEDS ORDERED: KETOROLAC TROMETHAMINE INJ/PF 30 MG/1 ML SDV IV PRN (09:13)
[2017-12-18] MEDS ORDERED: IBUPROFEN 800 MG TABLET PO PRN (09:15)
[2017-12-18] MEDS ORDERED: NEOSTIGMINE METHYLSULFATE 10 MG/10 ML VIAL ONE (09:59)
[2017-12-18] MEDS ORDERED: SUCCINYLCHOLINE CHLORIDE INJ 200 MG/10 ML VIAL ONE (09:59)
[2017-12-18] MEDS ORDERED: KETOROLAC TROMETHAMINE 60 MG/2 ML SDV ONE (09:59)
[2017-12-18] MEDS ORDERED: GLYCOPYRROLATE INJ 0.4 MG/2 ML VIAL ONE (09:59)
[2017-12-18] MEDS ORDERED: VECURONIUM BROMIDE INJ 10 MG VIAL IV ONE (09:59)
[2017-12-18 12:04] VITALS: BP 116/77
== END 2017-12-18 10:20 | disposition home or self-care (01) ==
LOC: OROUT 05:54
PROVIDERS: ATTEND Obstetrics & Gynecology
DX: Z30.2 Encounter for sterilization (principal); Z01.818 Encounter for other preprocedural examination; G40.409 Other generalized epilepsy and epileptic syndromes, not intractable, without status epilepticus
CPT/HCPCS: 36415; 85027; 81005; 81025; 58671; J2250; J1100; J1885 ×2; J3010 ×2; J3490 ×3; J0330; J2405; J2704; J0131; 851